=== PATIENT | male | born 1950 | race Caucasian/White ===

== ENCOUNTER 2023-07-15 08:20 | Outpatient (CLI) | payer MEDICARE, OTHER, SELFPAY ==
--- NOTE | ~2023-07-15 | US_ITS ---
EXAMINATION: US carotid duplex BI DATE: 07/15/2023 10:08 INDICATION: Cerebral infarction, unspecified. Thrombosed right vertebral artery. TECHNIQUE: Grayscale, color Doppler, and pulsed Doppler images of the cervical carotid arteries were obtained. The degree of vessel stenosis is placed in one of the following categories: normal, <50%, 5 0-69%, >=70% but less than near-occlusion, near-occlusion, or total occlusion. Note that percent sten osis relative to normal distal artery lumen diameter is indirectly measured from velocity measurement s as described by Beto, et al. Radiology 2003; 229:340-346. COMPARISON: CTA 07/14/2013 FINDINGS: RIGHT: The right common carotid artery (CCA) peak systolic velocity (PSV) is 66 cm/s. The right internal car otid artery (ICA) PSV is 131 cm/s. The right ICA end-diastolic velocity (EDV) is 26 cm/s. The right I CA/CCA PSV ratio is 2.0. Grayscale and color Doppler images yield an estimate of <50% diameter reduct ion from plaque in the ICA. There is antegrade flow in the right vertebral artery. LEFT: The left CCA PSV is 77 cm/s. The left ICA PSV is 73 cm/s. The left ICA EDV is 22 cm/s. The left ICA/C CA PSV ratio is 1.0. Grayscale and color Doppler images yield an estimate of <50% diameter reduction from plaque in the ICA. There is antegrade flow in the left vertebral artery. IMPRESSION: 1. <50% stenosis in the right internal carotid artery. 2. <50% stenosis in the left internal carotid artery. Reviewed, dictated and finalized at location A.
[2023-07-15 09:32] LABS: Cholesterol 238 mg/dL (0-200); HDL Direct 45 mg/dL; Triglycerides 111 mg/dL (<150)
[2023-07-15 09:42] LABS: LDL Cholesterol Direct 167 mg/dL
== END 2023-07-15 08:21 | disposition home or self-care (01) ==
LOC: ANHIMG 08:21
PROVIDERS: PCP Family Medicine; Visit Provider Psychiatry & Neurology Neurology
DX: I63.9 Cerebral infarction, unspecified (principal); I65.23 Occlusion and stenosis of bilateral carotid arteries
CPT/HCPCS: 36415; 80061; 93880

== ENCOUNTER 2023-08-05 16:15 | Emergency (ER) | payer MEDICARE, OTHER, SELFPAY ==
[2023-08-05 16:22] VITALS: BP 115/54; PULSE 72; RESP 18; TEMP 37; O2SAT 94
--- NOTE | 2023-08-05 16:41 | ECG_ITS ---
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 Measurements Intervals [place] Rate: 58 P: 11 NV: 190 QRS: 21 QRSD: 102 T: 13 QT: 394 QTc: 389 Interpretive Statements SINUS BRADYCARDIA BASELINE ARTIFACT- I, II, III, AVL, AVF BORDERLINE ECG No previous ECG available for comparison Electronically Signed On 08-05-2023 21:14:23 CDT by Crow Drew D.O.
--- NOTE | 2023-08-05 16:51 | ED.GENADULT ---
HPI - General Adult General Chief complaint: Unspecified Stated complaint: FEVER,N/V/D,LETHARGY X4D ?TICK BITE REACTION Time Seen by Provider: 08/05/23 16:18 Source: patient Mode of arrival: ambulatory Limitations: no limitations History of Present Illness HPI narrative: Patient knows he had a tick on his right leg 10 days ago. He does not know how long it was there but believes probably overnight. He removed it immediately with tweezers. on Wednesday of this week, started experiencing headache, nausea, and a fever a maximum temperature 100.4? F for which he took extra-strength Tylenol. He states the rash on his right lower leg persists (he realized the head was still present after the fact and had to dig it out). He also has a rash on his legs, chest/abdomen. He has experienced intermittent SOB but no chest pain. No mouth lesions, no new meds. He took a home covid test which was negative. Related Data Home Medications Medication Instructions Recorded Confirmed aspirin 81 mg tablet,delayed 81 mg PO DAILY 03/02/23 08/05/23 release cod liver oil 1 cap PO DAILY 08/04/23 08/05/23 Allergies Allergy/AdvReac Type Severity Reaction Status Date / Time Opioids - Morphine Analogues Allergy Severe Unknown Verified 08/05/23 16:29 [facility] Past Medical History Medical History (Updated 08/05/23 @ 18:55 by Rashmi Diaz MD) [place] (actinic keratosis) VIRGILIO on CPAP Osteoarthritis of right knee medial compartment Overweight Skin cancer screening Skin neoplasm Stroke 2013 Surgical History Surgical History History of repair of rotator cuff right Family History Family History Mother Cerebrovascular accident Cancer Social History Social History (Updated 08/04/23 @ 11:46 by Yolanda Hector CMA) Years smoked: 50 Smoking status: Former smoker Alcohol intake: current Alcohol use details: occasonal Substance use: never Substance use type: does not use Do You Feel Safe in your Home?: Yes Lack of Transportation: No Lack of Food: Never True Current Housing: I Have Housing Concerned About Future Housing: No Difficulty Paying Gas/Electric Bills: No Difficulty Paying for Meds: No Currently Unemployed: No Education: Trade/Vocational Certificate Difficulty w/ Childcare or Family Care: No Living arrangements: with family Occupation/Education: retired Exam Narrative: GENERAL: Well-appearing, well-nourished, and in no acute distress. HEAD: Normocephalic, atraumatic. EYES: Non injected, non icteric ENT: Nares clear, no rhinorrhea or epistaxis. No mucosal lesions. NECK: Supple. CHEST: Speaking in full sentences. No respiratory distress. HEART: Regular rate and rhythm. ABDOMEN: Soft, nondistended. EXTREMITIES: Normal range of motion. No edema. SKIN: Warm, dry. Erythematous rash with central blackened area, not erythema migrans in right lower extremity. Maculopapular rash on bilateral distal thighs, worse on the abdomen/chest, and even more significant on back. Palms/soles spared. NEURO: No focal deficits. Alert and oriented x3. PSYCH: Normal mood and affect. Course Vital Signs Vital signs: Vital Signs Temperature 98.6 F 08/05/23 16:22 Pulse Rate 72 08/05/23 16:22 Respiratory Rate 18 08/05/23 16:22 Blood Pressure 115/54 L 08/05/23 16:22 Pulse Oximetry 94 08/05/23 16:22 Oxygen Delivery Room Air 08/05/23 16:22 Temperature 98.6 F 08/05/23 16:22 Pulse Rate 72 08/05/23 16:22 Respiratory Rate 18 08/05/23 16:22 Blood Pressure 115/54 L 08/05/23 16:22 Pulse Oximetry 94 08/05/23 16:22 Oxygen Delivery Room Air 08/05/23 16:[address] [facility] Narrative Medical decision making narrative: Patient presents with headache and nausea, and fever. Patient had a tick bite 10 days ago and developed the symp
[2023-08-05 17:26] LABS: Basophils Percent Auto 0.2 % (0.2-1.2); Eosinophils Absolute Auto 0.9 K/mm3 (0-0.3); Eosinophils Percent Auto 7.2 % (0-4.4); Hematocrit 37.6 % (42.0-52.0); Hemoglobin 12.6 g/dL (14.0-18.0); Immature Granulocyte Absolute 0.03 K/mm3 (0.00-0.031); Immature Granulocyte Percent A 0.2 % (0-0.5); Lymphocytes Absolute Auto 0.81 K/mm3 (0.9-3.2); Lymphocytes Percent Auto 6.7 % (18.3-44.2); Mean Corpuscular HGB Conc 33.5 g/dl (32-36); Mean Corpuscular Hemoglobin 31.1 pg (26-34); Mean Corpuscular Volume 92.8 fl (80-100); Mean Platelet Volume 9.6 fl (7.4-10.4); Monocytes Absolute Auto 0.7 K/mm3 (0.1-0.6); Monocytes Percent Auto 5.7 % (2.6-8.5); Neutrophils Absolute Auto 9.7 K/mm3 (1.3-6.7); Platelet Count Result 197 k/mm3 (150-375); Red Blood Count 4.05 M/mm3 (4.6-6.20); Red Cell Distribution Width 13.2 % (11.5-14.5); White Blood Count 12.1 K/mm3 (4.5-10.0)
[2023-08-05 17:38] LABS: Alanine Aminotransferase 80 U/L (6-50); Albumin Level 4.3 g/dL (3.5-5.1); Alkaline Phosphatase 121 U/L (38-126); Anion Gap 8 mmol/L (4-12); Aspartate Amino Transferase 57 U/L (17-59); Bilirubin,Total 0.8 mg/dL (0.2-1.3); Blood Urea Nitrogen 48 mg/dL (9-20); Calcium 8.7 mg/dL (8.4-10.2); Carbon Dioxide 26 mmol/L (22-30); Chloride 102 mmol/L (98-107); Estimated CRCL calculation 42 ml/min; Estimated Glomerular Filt Rate 35; Glucose 104 mg/dL (65-110); Potassium 3.6 mmol/L (3.4-5.0); Sodium 136 mmol/L (137-145)
[2023-08-05 17:45] LABS: Influenza A QL RT-PCR Negative (Negative); Influenza B QL RT-PCR Negative (Negative); RSV RNA, RT-PCR Negative (Negative); SARS-CoV-2 RNA PCR Negative (Negative)
[2023-08-05 17:47] LABS: Platelet Estimate Adequate (Adequate); Schistocytes None Seen
[2023-08-05] MEDS: SODIUM CHLORIDE 0.9% IV 1,000 ML 999 ML IV CONT (17:56)
[2023-08-05] MEDS: DOXYCYCLINE HYCLATE 100 MG TABLET PO (18:47)
[2023-08-05 19:22] LABS: Anion Gap 9 mmol/L (4-12); Blood Urea Nitrogen 50 mg/dL (9-20); Calcium 8.5 mg/dL (8.4-10.2); Carbon Dioxide 24 mmol/L (22-30); Chloride 103 mmol/L (98-107); Estimated CRCL calculation 44 ml/min; Estimated Glomerular Filt Rate 37; Glucose 89 mg/dL (65-110); Magnesium 2.2 mg/dL (1.6-2.3); Potassium 3.5 mmol/L (3.4-5.0); Sodium 136 mmol/L (137-145)
[2023-08-05 19:45] LABS: Appearance Urine Cloudy (Clear); Bacteria Urine None Seen /hpf; Bilirubin Urine Negative (Negative); Blood Urine Negative (Negative); Color Urine Dark Yellow (Yellow); Glucose Urine UA Negative (Negative); Hyaline Casts Urine Present /lpf; Ketones Urine Trace mg/dL (Negative); Leukocyte Esterase Ur Negative LEU/UL (Negative); Need Manual Microscopic Reviewed; Nitrate Urine Negative (Negative); Non Pathogenic Casts >20; Protein Urine 2+ mg/dL (Negative); RBC Urine 0-2 /hpf (0-2); Squamous Epithelial Cell Urine Moderate /hpf (Few); Urobilinogen Urine 0.2 mg/dL (<2.0); WBC Urine 0-5 /hpf (0-3)
[2023-08-05 19:46] LABS: Add Urine Microscopic? YES
[2023-08-10 07:38] LABS: Rickettsia rickettsii DNA, PCR NOT DETECTED
[2023-09-02 14:05] LABS: Reference Lab Test Result Not Detected
== END 2023-08-05 19:42 | disposition home or self-care (01) ==
PROVIDERS: Emergency Provider Student in an Organized Health Care Education/Training Program; PCP Family Medicine
DX: S80.861A Insect bite (nonvenomous), right lower leg, initial encounter (principal); N17.9 Acute kidney failure, unspecified; D64.9 Anemia, unspecified; D72.829 Elevated white blood cell count, unspecified; R74.01 Elevation of levels of liver transaminase levels; Z20.822 Contact with and (suspected) exposure to COVID-19; R00.1 Bradycardia, unspecified; W57.XXXA Bitten or stung by nonvenomous insect and other nonvenomous arthropods, initial encounter
CPT/HCPCS: 36415; 80048; 80053; 81001; 83735; 85025; 86666; 87484; 87637; 87798; 87801; 93005; 99283; A9270; J7030

== ENCOUNTER 2023-08-07 22:05 | Inpatient (IN) | payer MEDICARE, OTHER, SELFPAY ==
--- NOTE | ~2023-08-07 | XR_ITS ---
EXAMINATION: XR chest 1V portable 08/07/2023 22:55 INDICATION: Shortness of breath PROCEDURE: AP portable chest COMPARISON: 07/13/2013 FINDINGS: The lungs are clear. The cardiomediastinal silhouette is within normal limits. There are no pleural effusions. There is no pneumothorax suspected. IMPRESSION: 1: NO ACUTE CARDIOPULMONARY DISEASE. Reviewed, dictated and finalized at location B.
[2023-08-07 22:08] VITALS: BP 90/65; PULSE 149; RESP 26; TEMP 37.2; O2SAT 96
--- NOTE | 2023-08-07 22:12 | ECG_ITS ---
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 Measurements Intervals [place] Rate: 144 P: 0 DC: 0 QRS: 5 QRSD: 101 T: -14 QT: 278 QTc: 431 Interpretive Statements ATRIAL FIBRILLATION WITH RAPID VENTRICULAR RESPONSE ABNORMAL RHYTHM ECG Compared to ECG 08/05/2023 17:02:38 Atrial fibrillation with RVR now present Electronically Signed On 08-08-2023 12:07:53 CDT by Felix Penaloza M.D.
[2023-08-07 22:16] VITALS: PULSE 137
[2023-08-07 22:17] VITALS: O2SAT 96
[2023-08-07 22:21] VITALS: BP 115/61; PULSE 138; RESP 18; O2SAT 97
[2023-08-07 22:24] LABS: Basophils Absolute Auto 0.1 K/mm3 (0.0-0.1); Basophils Percent Auto 0.4 % (0.2-1.2); Eosinophils Absolute Auto 1.3 K/mm3 (0-0.3); Eosinophils Percent Auto 7.2 % (0-4.4); Hematocrit 37.9 % (42.0-52.0); Immature Granulocyte Absolute 0.13 K/mm3 (0.00-0.031); Immature Granulocyte Percent A 0.7 % (0-0.5); Lymphocytes Percent Auto 9.6 % (18.3-44.2); Mean Corpuscular HGB Conc 34.3 g/dl (32-36); Mean Corpuscular Hemoglobin 31.3 pg (26-34); Mean Corpuscular Volume 91.3 fl (80-100); Mean Platelet Volume 9.5 fl (7.4-10.4); Monocytes Absolute Auto 0.7 K/mm3 (0.1-0.6); Monocytes Percent Auto 3.8 % (2.6-8.5); Neutrophils Absolute Auto 13.9 K/mm3 (1.3-6.7); Neutrophils Percent Auto 78.3 % (45.5-73.1); Platelet Count Result 272 k/mm3 (150-375); Red Blood Count 4.15 M/mm3 (4.6-6.20); Red Cell Distribution Width 13.2 % (11.5-14.5); White Blood Count 17.7 K/mm3 (4.5-10.0)
[2023-08-07 22:33] LABS: Alanine Aminotransferase 56 U/L (6-50); Alkaline Phosphatase 142 U/L (38-126); Anion Gap 14 mmol/L (4-12); Aspartate Amino Transferase 33 U/L (17-59); Bilirubin,Total 0.9 mg/dL (0.2-1.3); Blood Urea Nitrogen 50 mg/dL (9-20); Calcium 9.1 mg/dL (8.4-10.2); Carbon Dioxide 20 mmol/L (22-30); Chloride 102 mmol/L (98-107); Estimated CRCL calculation 32 ml/min; Estimated Glomerular Filt Rate 26; Glucose 87 mg/dL (65-110); Potassium 3.3 mmol/L (3.4-5.0); Sodium 136 mmol/L (137-145)
[2023-08-07 22:45] VITALS: BP 119/63; PULSE 70; RESP 14; O2SAT 96
[2023-08-07] MEDS: SODIUM CHLORIDE 0.9% IV 1,000 ML 999 ML IV CONT (22:54)
[2023-08-07 23:03] LABS: Magnesium 1.9 mg/dL (1.6-2.3)
[2023-08-07 23:14] LABS: Lactic Acid Reflex 1.4 mmol/L (0.7-2.0)
[2023-08-07 23:21] LABS: NT Pro B Type Natriuretic Pept 2120 pg/mL (19.9-100); Procalcitonin 1.8 ng/mL; Troponin I 0.205 ng/mL (0.000-0.034)
[2023-08-08] VITALS (21 sets, daily range): BP systolic 106–145; BP diastolic 47–72; PULSE 58–105; RESP 16–22; TEMP 36.4–37.6; O2SAT 96–99; BMI 34.6
--- NOTE | 2023-08-08 00:08 | ED.GENADULT ---
HPI - General Adult General Chief complaint: Shortness of Breath/Dyspnea Stated complaint: shortness of breath with lyme disease Time Seen by Provider: 08/07/23 22:34 History of Present Illness HPI narrative: patient has severe old gentleman who presents emergency department with chief complaint of shortness of breath. Patient reports that he had a tick bite on the 15th was seen in the emergency department after he started develop a rash and was started on doxycycline new laboratory studies had decent at that time the patient reports that the rash has been progressively worsening and reports that now he is covered his entire body the patient reports that he has been having problems with shortness of breath and reports that he has noticed that at times his heart rate has been fast particularly whenever he ambulates or does any kind of activity. The patient reports no prior history of cardiac or respiratory disease the patient reports that he has generalized malaise and body aches Related Data Home Medications Medication Instructions Recorded Confirmed aspirin 81 mg tablet,delayed 81 mg PO DAILY 03/02/23 08/05/23 release cod liver oil 1 cap PO DAILY 08/04/23 08/05/23 Allergies Allergy/AdvReac Type Severity Reaction Status Date / Time Opioids - Morphine Analogues Allergy Severe Unknown Verified 08/05/23 16:29 Review of Systems Review of Systems: A 10 system review of systems was completed on the patient and is negative except for what is stated in the HPI. Nursing and ancillary documentation was reviewed. [facility] Past Medical History Medical History [place] (actinic keratosis) VIRGILIO on CPAP Osteoarthritis of right knee medial compartment Overweight Skin cancer screening Skin neoplasm Stroke 2013 Surgical History Surgical History History of repair of rotator cuff right Family History Family History Mother Cerebrovascular accident Cancer Social History Social History Years smoked: 50 Smoking status: Former smoker Alcohol intake: current Alcohol use details: occasonal Substance use: never Substance use type: does not use Do You Feel Safe in your Home?: Yes Lack of Transportation: No Lack of Food: Never True Current Housing: I Have Housing Concerned About Future Housing: No Difficulty Paying Gas/Electric Bills: No Difficulty Paying for Meds: No Currently Unemployed: No Education: Trade/Vocational Certificate Difficulty w/ Childcare or Family Care: No Living arrangements: with family Occupation/Education: retired Exam Narrative: GENERAL: Well-appearing, well-nourished, and in no acute distress. HEAD: Normocephalic, atraumatic. EYES: PERRLA and EOMI. ENT: Nares clear, no rhinorrhea or epistaxis. Mucous membranes moist. NECK: Supple. CHEST: Clear to auscultation. No respiratory distress. HEART: tachycardic rate and rhythm. No murmur heard. Normal peripheral pulses. ABDOMEN: Soft, nontender, nondistended, normal active bowel sounds. EXTREMITIES: Normal range of motion. No edema. SKIN: Warm, dry, diffuse rash present. NEURO: No focal deficits. Alert and oriented x3. PSYCH: Normal mood and affect. Course Vital Signs Vital signs: Vital Signs Temperature 37.2 C 08/07/23 22:08 Pulse Rate 149 H 08/07/23 22:08 Respiratory Rate 26 H 08/07/23 22:08 Blood Pressure 90/65 L 08/07/23 22:08 Pulse Oximetry 96 08/07/23 22:08 Oxygen Delivery Room Air 08/07/23 22:08 Temperature 37.2 C 08/07/23 22:08 Pulse Rate 70 08/07/23 22:45 Respiratory Rate 14 08/07/23 22:45 Blood Pressure 119/63 08/07/23 22:45 Pulse Oximetry 96 08/07/23 22:45 Oxygen Delivery Room Air 08/07/23 22:17
[2023-08-08 00:15] LABS: INR 1.2; Prothrombin Time 15.8 Seconds (11.1-14.7)
--- NOTE | 2023-08-08 00:34 | PM.IMHP ---
H&P: HPI History of Present Illness Date/Time: 08/08/23 00:34 Chief Complaint: tick bite Narrative: patient is 72-year-old male history of sleep apnea and actinic keratosis came to the emergency room with a tick bite and rash on the patient was treated with doxycycline and sent home but patient was re-evaluated in the emergency room tonight with worsening rash shortness of breath difficulty breathing and patient was noted to be hypotensive. Patient denied chest pain no nausea no vomiting no headaches dizziness palpitation. Review of Systems Review of Systems: All systems reviewed & are unremarkable except as noted in HPI and below PMFSH Past Medical History Medical History AK (actinic keratosis) VIRGILIO on CPAP Osteoarthritis of right knee medial compartment Overweight Skin cancer screening Skin neoplasm Stroke 2013 Surgical History Surgical History History of repair of rotator cuff right Family History Family History Mother Cancer Cerebrovascular accident Lung cancer C. difficile colitis Father Hypertension Pacemaker Social History Social History Years smoked: 20 Smoking status: Former smoker Tobacco type: cigars Second hand tobacco smoke exposure: No Alcohol intake: current Drinks per week: 5 Alcohol use details: occasonal Substance use: never Substance use type: does not use Do You Feel Safe in your Home?: Yes Lack of Transportation: No Lack of Food: Never True Current Housing: I Have Housing Concerned About Future Housing: No Difficulty Paying Gas/Electric Bills: No Difficulty Paying for Meds: No Currently Unemployed: No Education: Trade/Vocational Certificate Difficulty w/ Childcare or Family Care: No Living arrangements: with family Occupation/Education: retired Spiritual care concerns: No Meds Home Medications and Allergies Home Medications Medication Instructions Recorded Confirmed Type aspirin 81 mg tablet,delayed 81 mg PO DAILY 03/02/23 08/08/23 History release diclofenac sodium 75 mg 75 mg PO BID #180 tabs 06/01/23 08/08/23 Rx tablet,delayed release escitalopram oxalate 10 mg tablet 10 mg PO DAILY #90 tabs 06/17/23 08/08/23 Rx cod liver oil 2 cap PO DAILY 08/04/23 08/08/23 History doxycycline hyclate 100 mg capsule 100 mg PO Q12H 14 days #28 caps 08/05/23 08/08/23 Rx ondansetron 4 mg disintegrating 4 mg PO Q8H PRN nausea and 08/05/23 08/08/23 Rx tablet vomiting #7 tabs acetaminophen 500 mg tablet 500 mg PO Q6H PRN .arthritic pain 08/08/23 08/08/23 History (Acetaminophen Extra Strength) lisinopril 40 mg tablet 40 mg PO DAILY 08/08/23 08/08/23 History Allergies Allergy/AdvReac Type Severity Reaction Status Date / Time Opioids - Morphine Analogues Allergy Severe Unknown Verified 08/08/23 02:31 Vital Signs Vital Signs - 24 hr 08/07/23 22:08 08/07/23 22:16 08/07/23 22:17 Temperature 37.2 C Pulse Rate 149 H 137 H Respiratory Rate 26 H Blood Pressure 90/65 L Pulse Oximetry 96 96 Oxygen Delivery Room Air Room Air 08/07/23 22:21 08/07/23 22:45 Temperature Pulse Rate 138 H 70 Respiratory Rate 18 14 Blood Pressure 115/61 119/63 Pulse Oximetry 97 96 Oxygen Delivery Exam Narrative: GENERAL: Well appearing, no acute distress. HEAD: Normocephalic, atraumatic. NECK: Supple. No adenopathy, no masses. RESPIRATORY: respirations nonlabored. , no rales, wheezing. CARDIOVASCULAR: Regular rate and rhythm without murmurs, . Peripheral pulses 2+ and equal bilaterally. ABDOMINAL: Soft, nontender, nondistended, no hepatosplenomegaly. Normoactive BS. MUSCULOSKELETAL: no Epigastric and no hypochondrial tenderness SKIN: warm and dry with a diffuse
[2023-08-08] MEDS: DOXYCYCLINE 100 MG/NS 100 ML 100 MG/100 ML BAG IVPB ×2 (01:06→12:17)
--- NOTE | 2023-08-08 02:01 | ADMGEN ---
This patient, Lyndon Salgado, was admitted to IMU Room 205-02 on 08/08/23 at 0200. Patient/family oriented to hospital policies and general routines including ID bracelet, bed and alarms, visiting hours, pain management, procedures, bathroom and other care routines, personal items, smoking policy, room service/diet, and visiting hours. Information on how to activate the Rapid Response Team has been discussed. Patient/Family are encouraged to report perceived risks to care and to ask questions if they do not understand what they are told or what they should do.
[2023-08-08 02:09] LABS: Troponin I 0.168 ng/mL (0.000-0.034)
[2023-08-08] MEDS: SODIUM CHLORIDE 0.9% IV 1,000 ML 75 ML IV CONT ×2 (02:57→15:03)
[2023-08-08 05:04] LABS: Troponin I 0.128 ng/mL (0.000-0.034)
[2023-08-08 05:14] LABS: Erythrocyte Sedimentation Rate 71 mm/hr (0-20)
[2023-08-08] MEDS: methylPREDNISolone SOD SUCC 125 MG VIAL IV PUSH (05:24)
[2023-08-08] MEDS: cefTRIAXone 2 GM/NS 100 ML 2 GM/100 ML BAG IVPB ×2 (05:25→17:10)
[2023-08-08 08:22] LABS: Appearance Urine Cloudy (Clear); Bacteria Urine None Seen /hpf; Bilirubin Urine Negative (Negative); Blood Urine Negative (Negative); Color Urine Dark Yellow (Yellow); Glucose Urine UA Negative (Negative); Granular Casts Urine Present /lpf; Ketones Urine Trace mg/dL (Negative); Leukocyte Esterase Ur Trace LEU/UL (Negative); Nitrate Urine Negative (Negative); Non Pathogenic Casts >20; Protein Urine 2+ mg/dL (Negative); RBC Urine 0-2 /hpf (0-2); Specific Grav Ur 1.017 (1.001-1.035); Squamous Epithelial Cell Urine Moderate /hpf (Few); WBC Urine 0-5 /hpf (0-3)
[2023-08-08 08:24] LABS: Add Urine Microscopic? YES
--- NOTE | 2023-08-08 08:43 | PM.IMPN ---
Progress Note: A&P Assessment and Plan (1) Obstructive sleep apnea syndrome: Code(s): G47.33 - Obstructive sleep apnea (adult) (pediatric) Status: Acute (2) Tick bite: Code(s): W57.XXXA - Bitten or stung by nonvenomous insect and other nonvenomous arthropods, initial encounter Status: Acute (3) Sepsis associated hypotension: Code(s): A41.9 - Sepsis, unspecified organism; I95.9 - Hypotension, unspecified Status: Acute Plan patient is 72-year-old male history of sleep apnea and actinic keratosis came to the emergency room with a tick bite and rash on the patient was treated with doxycycline and sent home but patient was re-evaluated in the emergency room tonight with worsening rash shortness of breath difficulty breathing and patient was noted to be hypotensive.? Patient denied chest pain no nausea no vomiting no headaches dizziness palpitation. sepsis/hypotension /tachycardia etiology of the rash unknown differential diagnosis drug-induced rash/ measles/meningococcal /tick bite / viral IV fluid resuscitation Monitor lactic acid levels Repeat CBC CMP Two sets of Blood cultures urine cultures Monitor albumin' Monitoring of mental status. IV antibiotics doxycycline. Rocephin 2 g q.12 Solu-Medrol 125 x 1 WBC 17 K 4/: . patient is afebrile, blood pressure stable, leukocytosis improving, patient feels itchy, continue doxycycline and ceftriaxone IV, start Benadryl 25 mg q.6 hours IV, famotidine 20 mg acute are IV CRF stage IIIB cause dehydration /inflammation /hypotension serum creatinine 2.5 Avoid nephrotoxic drugs. Monitor antihypertensive drug therapy. Avoid NSAIDs. Routine CMP monitoring GFR. Monitor electrolytes especially potassium. 3.3 Pharmacy does medications. positive troponin. unclear etiology., demand ischemia Due to sepsis, AFib RVR or viral myocarditis [id number] echo. BNP 2100 consult business management professor AFib RVR new onset AFib On business management professor Likely secondary to sepsis, myocarditis? Consult business management professor, appreciate recommendations Start metoprolol p.o. per business management professor now patient has sinus rhythm OBESITY Monitor physical inactivity. Stress monitoring and eating disorder. Referral to weight loss clinic. as outpatient history of sleep apnea Diet and exercise counseling done Subjective Date/time seen: 08/08/23 08:43 Interval history: I saw And examined patient today. patient feels better today, still few itchy, patient is afebrile, blood pressure stable, patient denies palpitation, chest pain. Dyspnea is improving. Patient denies abdomen pain, nausea vomiting diarrhea dysuria Exam Narrative: GENERAL: Pleasant, in no acute distress. Well-nourished. - EYES: EOMI. Anicteric. - HENT: Moist mucous membranes. - LUNGS: Clear to auscultation bilaterally, no wheezing, rhonchi, or rales. - CARDIOVASCULAR: Regular rate and rhythm. No murmur. No JVD. - ABDOMEN: Soft, non-tender and non-distended. No palpable masses. - EXTREMITIES: No edema. Peripheral pulses 2+. Non-tender. - NEUROLOGIC: No focal neurological deficits. CN II-XII grossly intact. - PSYCHIATRIC: Awake, Alert and oriented x 3. Appropriate mood and affect. - SKIN: scattered papular rash over trunk lower extremities upper extremities - LYMPH: No cervical lymphadenopathy. Objective Data Vital Signs Vital Signs: Vital Signs - 24 hr 08/07/23 22:08 08/07/23 22:16 08/07/23 22:17 Temperature 98.9 F Pulse Rate 149 H 137 H Respiratory Rate 26 H Blood Pressure 90/65 L Pulse Oximetry 96 96 Oxygen Delivery Room Air Room Air 08/07/23 22:21 08/07/23 22:45 08/08/23 01:25 Temperature Pulse Rate 138 H 70 63 Respiratory Rate 18 14 18 Blood Pressure 115/61 119/63 109/47 L Pulse Oximetry 97 96 98 Oxygen Delivery 08/08/23 01:31 08/08/23 01:33 08/08/23 02:00 Temperature 97.5 F L Pulse Rate 63 62 58 L Respiratory Rat
[2023-08-08] MEDS: ASPIRIN 81 MG CHEWABLE TABLET PO (08:44)
[2023-08-08] MEDS: ENOXAPARIN 40 MG/0.4 ML SYRINGE SUB-Q (08:44)
[2023-08-08 09:00] LABS: Basophils Absolute Auto 0.1 K/mm3 (0.0-0.1); Basophils Percent Auto 0.4 % (0.2-1.2); Eosinophils Absolute Auto 1.4 K/mm3 (0-0.3); Eosinophils Percent Auto 10.4 % (0-4.4); Hematocrit 37.1 % (42.0-52.0); Immature Granulocyte Absolute 0.08 K/mm3 (0.00-0.031); Immature Granulocyte Percent A 0.6 % (0-0.5); Lymphocytes Absolute Auto 1.88 K/mm3 (0.9-3.2); Mean Corpuscular HGB Conc 32.3 g/dl (32-36); Mean Corpuscular Hemoglobin 30.8 pg (26-34); Mean Corpuscular Volume 95.4 fl (80-100); Mean Platelet Volume 10.4 fl (7.4-10.4); Monocytes Absolute Auto 0.2 K/mm3 (0.1-0.6); Monocytes Percent Auto 1.3 % (2.6-8.5); Neutrophils Absolute Auto 9.8 K/mm3 (1.3-6.7); Neutrophils Percent Auto 73.3 % (45.5-73.1); Platelet Count Result 262 k/mm3 (150-375); Red Blood Count 3.89 M/mm3 (4.6-6.20); Red Cell Distribution Width 13.7 % (11.5-14.5); White Blood Count 13.4 K/mm3 (4.5-10.0)
[2023-08-08 09:25] LABS: Alanine Aminotransferase 46 U/L (6-50); Albumin Level 3.5 g/dL (3.5-5.1); Alkaline Phosphatase 110 U/L (38-126); Anion Gap 10 mmol/L (4-12); Aspartate Amino Transferase 28 U/L (17-59); Bilirubin,Total 0.7 mg/dL (0.2-1.3); Blood Urea Nitrogen 53 mg/dL (9-20); Calcium 8.3 mg/dL (8.4-10.2); Carbon Dioxide 21 mmol/L (22-30); Chloride 104 mmol/L (98-107); Estimated CRCL calculation 30 ml/min; Estimated Glomerular Filt Rate 23; Glucose 86 mg/dL (65-110); Potassium 3.2 mmol/L (3.4-5.0); Sodium 135 mmol/L (137-145)
--- NOTE | 2023-08-08 10:58 | PM.CNCAR ---
Assessment and Plan Assessment and plan (1) Atrial fibrillation with RVR: Code(s): I48.91 - Unspecified atrial fibrillation Status: Acute Assessment and Plan: New diagnosis of atrial fibrillation for the patient. Will check TSH level, echocardiogram. Likely triggered by underlying acute illness with febrile illness, rash, sepsis As patient currently in sinus rhythm, will start Toprol 25mg once daily. [id number] is 4 for age, hypertension, history of CVA. Recommend anticoagulation for stroke risk reduction. Discussed the indication for anticoagulation with the patient, risks vs benefits. Patient agreeable. Will start Eliquis 5mg BID. (2) Elevated troponin: Code(s): R79.89 - Other specified abnormal findings of blood chemistry Status: Acute Assessment and Plan: Mildly elevated. This does not appear to be an acute coronary syndrome. Likely demand ischemia from sepsis, acute febrile illness, ROGE, atrial fibrillation with RVR. Myocarditis on differential as well. Echocardiogram ordered and pending. (3) Acute kidney injury: Code(s): N17.9 - Acute kidney failure, unspecified Status: Acute Assessment and Plan: Agree with IVFs. If ROGE continues to worsen, consider Nephrology consultation. (4) Sepsis associated hypotension: Code(s): A41.9 - Sepsis, unspecified organism; I95.9 - Hypotension, unspecified Status: Acute Assessment and Plan: Management as per primary team. On antibiotics. (5) Acute febrile illness: Code(s): R50.9 - Fever, unspecified Status: Acute Assessment and Plan: Has diffuse rash across his body after getting tick bite. On antibiotics as per primary team. If this continues to worsen, consider Infectious Disease consultation, which would necessitate transfer to another institution that has ID services. (6) Thrombotic stroke involving cerebellar artery: Code(s): I63.349 - Cerebral infarction due to thrombosis of unspecified cerebellar artery Status: Acute Assessment and Plan: History of CVA in 2014. As we are starting NOAC for atrial fibrillation, will stop his ASA. Not on statin at home, will start high-intensity statin. (7) Tick bite: Code(s): W57.XXXA - Bitten or stung by nonvenomous insect and other nonvenomous arthropods, initial encounter Status: Acute Assessment and Plan: Has diffuse rash across his body after getting tick bite. On antibiotics as per primary team. If this continues to worsen, consider Infectious Disease consultation, which would necessitate transfer to another institution that has ID services. Plan Recommendations and plan were discussed with Hospitalist. History of Present Illness History of Present Illness Consult date/time: 08/08/23 10:58 Requesting physician: Marleni Lin MD Consult reason: Other (Elevated troponin, AFIB) Reason For Visit: Febrile illness, acute kidney injury, elevated tro Narrative: We are consulted for elevated troponin, atrial fibrillation. This is a 72 year old male with hypertension, history of CVA in 2013 who had a tick bite on July 20 on his right leg and then developed a rash at that site. However, the rash has been progressively worsening and spreading across his body and covering his entire body. Has been having high grade fevers at home. Has felt a fast heart rate yesterday, but not prior to that. No prior cardiac issues. ER suspects he may be having [place] spotted fever. He has been admitted for further management. Workup thus far shows: WBC 17.7 ESR elevated at 71 ROGE with SCr of 2.7 Lactate is normal. Troponins of 0.205, 0.168, 0.128 CRP elevated at 31 CXR is clear Blood cultures are pending EKG on 08/04 shows sinus rhythm, however EKG on 08/07 shows atrial fibrillation with RVR Tele shows that patient is currently in sinus rhythm Review of Systems Review of Systems: All systems reviewed & are unremar
[2023-08-08 11:35] LABS: Thyroid Stimulating Hormone 0.627 uIU/mL (0.465-4.680)
[2023-08-08] MEDS: METOPROLOL SUCCINATE EXT REL 25 MG TABCR PO (12:17)
[2023-08-08] MEDS: diphenhydrAMINE HCl INJ 50 MG/ML VIAL 25 MG IV PUSH ×3 (15:04→23:32)
[2023-08-08] MEDS: FAMOTIDINE 20 MG/2 ML VIAL IV PUSH ×2 (15:04→21:07)
[2023-08-08] MEDS: APIXABAN 5 MG TABLET PO (20:39)
[2023-08-09] VITALS (11 sets, daily range): BP systolic 143–146; BP diastolic 63–85; PULSE 54–118; RESP 16–18; TEMP 36.6–36.9; O2SAT 96–100
[2023-08-09] MEDS: DOXYCYCLINE 100 MG/NS 100 ML 100 MG/100 ML BAG IVPB ×2 (01:00→12:39)
--- NOTE | 2023-08-09 03:55 | PC.NURSE ---
[facility] faxed, downtime Mar faxed and tubed, Verbal report given to Bayron LOZADA on medical.
[2023-08-09 04:31] LABS: Basophils Absolute Auto 0.1 K/mm3 (0.0-0.1); Basophils Percent Auto 0.4 % (0.2-1.2); Eosinophils Absolute Auto 0.1 K/mm3 (0-0.3); Eosinophils Percent Auto 0.4 % (0-4.4); Hematocrit 32.4 % (42.0-52.0); Hemoglobin 10.7 g/dL (14.0-18.0); Immature Granulocyte Absolute 0.13 K/mm3 (0.00-0.031); Immature Granulocyte Percent A 0.7 % (0-0.5); Lymphocytes Absolute Auto 2.16 K/mm3 (0.9-3.2); Mean Corpuscular Volume 93.9 fl (80-100); Mean Platelet Volume 9.9 fl (7.4-10.4); Monocytes Absolute Auto 0.8 K/mm3 (0.1-0.6); Monocytes Percent Auto 4.3 % (2.6-8.5); Neutrophils Absolute Auto 14.7 K/mm3 (1.3-6.7); Neutrophils Percent Auto 82.2 % (45.5-73.1); Platelet Count Result 274 k/mm3 (150-375); Red Blood Count 3.45 M/mm3 (4.6-6.20); Red Cell Distribution Width 13.5 % (11.5-14.5)
--- NOTE | 2023-08-09 04:42 | PC.NURSE ---
Transferred to [facility] with all his belongs at [id number]
[2023-08-09 05:04] LABS: Anisocytosis 1+; Large Platelets Present; Platelet Estimate Adequate (Adequate)
[2023-08-09 05:05] LABS: Atypical Lymphocytes Present; Burr Cells 1+; Schistocytes None Seen
[2023-08-09 05:22] LABS: Anion Gap 8 mmol/L (4-12); Blood Urea Nitrogen 40 mg/dL (9-20); Calcium 8.5 mg/dL (8.4-10.2); Carbon Dioxide 21 mmol/L (22-30); Chloride 109 mmol/L (98-107); Estimated CRCL calculation 56 ml/min; Estimated Glomerular Filt Rate 50; Glucose 124 mg/dL (65-110); Potassium 3.8 mmol/L (3.4-5.0); Sodium 138 mmol/L (137-145)
[2023-08-09] MEDS: cefTRIAXone 2 GM/NS 100 ML 2 GM/100 ML BAG IVPB ×2 (05:45→17:29)
--- NOTE | 2023-08-09 06:00 | ECHO_ITS ---
Patient Info Name: Lyndon Salgado Age: 72 years : 1950 Gender: Male Ht: 71 in Wt: 248 lbs BSA: 2.41 m2 HR: 54 bpm BP: 143 / 63 mmHg Heart Rhythm: Sinus Rhythm Technical Quality: Fair Exam Date: 08/09/2023 9:17 AM Exam Location: Echo Lab Patient Status: Inpatient Admit Date: 08/09/2023 Staff Ordering Physician: Sarbjit Manuel MD Power Shovel Operator Helper: Madeleine York RDCS Attending Provider: Nithin Laboy MD Referring Physician: Mar LUNA; Exam Type: CA echo dop color flow w con Study Info Indications - febrile illness, elevated troponin Complete two-dimensional, color flow and Doppler transthoracic echocardiogram is performed with contrast to opacify the left ventricle and to improve the deliniation of the left ventricle endocardial borders. Contrast/Agitated Saline Contrast/Ag. Saline: Definity Amount: 2.00 ml Administered By: Madeleine York RDCS Existing IV Access: Yes IV Access Condition: patent with no signs of infiltration Summary 1. Definity contrast used to improve visualization. 2. Normal left ventricular size and systolic function without wall motion abnormalities and normal ejection fraction. 3. Mildly sclerotic aortic valve with will maintain leaflet excursion. 4. Trivial TR. Left Ventricle Left ventricular chamber dimension is normal. Left ventricular systolic function is normal, estimated at 60-65%. The left ventricular diastolic function is grade I diastolic dysfunction. Right Ventricle Right ventricular chamber dimension is normal. Left Atria Left atrial chamber dimension is normal. Right Atria Right atrial chamber dimension is normal. Aortic Valve The aortic valve is trileaflet. There is mild aortic valve sclerosis. Pulmonic Valve The pulmonic valve is not well visualized. Mitral Valve The mitral valve has normal leaflets. Tricuspid Valve The tricuspid valve leaflets are normal. There is trace tricuspid valve regurgitation. Pericardium/Pleural The pericardium appears normal. Aorta The aortic root size at the sinus of Valsalva is normal. Left Ventricular Outflow Tract Name Value Normal LVOT 2D LVOT Diameter 2.04 cm LVOT Doppler LVOT Peak Gradient 6 mmHg LVOT Mean Gradient 3 mmHg LVOT VTI 29.43 cm LVOT VTI/AV VTI Ratio 0.95 LVOT Stroke Volume 96.44 ml LVOT CO 5.41 l/min LVOT CI 2.24 L/min/m2 Pulmonic Valve Name Value Normal RVOT Doppler RVOT Peak Gradient 2 mmHg PV Doppler PV Peak Gradient 5 mmHg Mitral Valve Name
[2023-08-09] MEDS: diphenhydrAMINE HCl INJ 50 MG/ML VIAL 25 MG IV PUSH ×2 (06:19→12:32)
--- NOTE | 2023-08-09 08:50 | PM.IMPN ---
Progress Note: A&P Assessment and Plan (1) Obstructive sleep apnea syndrome: Code(s): G47.33 - Obstructive sleep apnea (adult) (pediatric) Status: Acute (2) Tick bite: Code(s): W57.XXXA - Bitten or stung by nonvenomous insect and other nonvenomous arthropods, initial encounter Status: Acute (3) Sepsis associated hypotension: Code(s): A41.9 - Sepsis, unspecified organism; I95.9 - Hypotension, unspecified Status: Acute Plan patient is 72-year-old male history of sleep apnea and actinic keratosis came to the emergency room with a tick bite and rash on the patient was treated with doxycycline and sent home but patient was re-evaluated in the emergency room tonight with worsening rash shortness of breath difficulty breathing and patient was noted to be hypotensive.? Patient denied chest pain no nausea no vomiting no headaches dizziness palpitation. sepsis/hypotension /tachycardia etiology of the rash unknown differential diagnosis drug-induced rash/ measles/meningococcal /tick bite / viral IV fluid resuscitation Monitor lactic acid levels Repeat CBC CMP Two sets of Blood cultures urine cultures Monitor albumin' Monitoring of mental status. IV antibiotics doxycycline. Rocephin 2 g q.12 Solu-Medrol 125 x 1 upon arrival patient is afebrile, blood pressure stable, leukocytosis is worse patient feels itchy, continue doxycycline and ceftriaxone IV, increase Benadryl 50 mg q.6 hours IV, c/w famotidine 20 mg acute are IV eosinophilia has resolved acute renal failure cause dehydration /inflammation /hypotension serum creatinine 2.5 Avoid nephrotoxic drugs. Monitor antihypertensive drug therapy. Avoid NSAIDs. Routine CMP monitoring GFR. Monitor electrolytes especially potassium. 3.3 Pharmacy does medications. creatinine trending down 1.4 today positive troponin. unclear etiology., demand ischemia Due to sepsis, AFib RVR or viral myocarditis [id number] echo. BNP 2100 consult car bracer AFib RVR new onset AFib On car bracer Likely secondary to sepsis, myocarditis? Consult car bracer, appreciate recommendations Start metoprolol p.o. per car bracer now patient has sinus rhythm OBESITY Monitor physical inactivity. Stress monitoring and eating disorder. Referral to weight loss clinic. as outpatient history of sleep apnea Diet and exercise counseling done Subjective Date/time seen: 08/09/23 08:50 Interval history: I saw And examined patient today. patient feels better today, rashes are subsiding, still few itchy, patient is afebrile, blood pressure stable, patient denies palpitation, chest pain. Dyspnea is improving. Patient denies abdomen pain, nausea vomiting diarrhea dysuria, blood culture negative. Labs reviewed, leukocytosis is worse, blood eosinophilia resolved, kidney function continue to improve Exam Narrative: GENERAL: Pleasant, in no acute distress. Well-nourished. - EYES: EOMI. Anicteric. - HENT: Moist mucous membranes. - LUNGS: Clear to auscultation bilaterally, no wheezing, rhonchi, or rales. - CARDIOVASCULAR: Regular rate and rhythm. No murmur. No JVD. - ABDOMEN: Soft, non-tender and non-distended. No palpable masses. - EXTREMITIES: No edema. Peripheral pulses 2+. Non-tender. - NEUROLOGIC: No focal neurological deficits. CN II-XII grossly intact. - PSYCHIATRIC: Awake, Alert and oriented x 3. Appropriate mood and affect. - SKIN: scattered papular rash over trunk lower extremities upper extremities - LYMPH: No cervical lymphadenopathy. Objective Data Vital Signs Vital Signs: Vital Signs - 24 hr 08/08/23 10:00 08/08/23 11:57 08/08/23 12:17 Temperature 98.0 F Pulse Rate 105 H 62 84 Respiratory Rate 16 Blood Pressure 145/67 H Pulse Oximetry 98 Oxygen Delivery 08/08/23 12:00 08/08/23 12:00 08/08/23 14:00 Temperature Pulse Rate 66 62 Respiratory Rate Blood
[2023-08-09] MEDS: APIXABAN 5 MG TABLET PO ×2 (09:12→20:52)
[2023-08-09] MEDS: ATORVASTATIN 40 MG TABLET 80 MG PO (09:12)
[2023-08-09] MEDS: METOPROLOL SUCCINATE EXT REL 25 MG TABCR PO (09:12)
[2023-08-09] MEDS: FAMOTIDINE 20 MG/2 ML VIAL IV PUSH ×2 (09:12→20:52)
[2023-08-09] MEDS: PERFLUTREN LIPID MICROSPHERES 1.5 ML VIAL DILUTED TO 10 ML TOTAL VOLUME IV PUSH (10:00)
--- NOTE | 2023-08-09 11:32 | IVDEFINITY ---
Prior to administration of IV Definity the patient was educated on the risks and benefits of the imaging enhancing agent including potential adverse side effects. The patient verbalized understanding. Allergies were verified. No exclusion criteria were identified and at least one of the following inclusion criteria were met: 1) physician request, 2) patient technically difficult to image (per the [place] [employer] guidelines of two or more segments not discernable within the apical view), or 3) questionable left ventricular function. ?
[2023-08-09] MEDS: SODIUM CHLORIDE 0.9% IV 1,000 ML 75 ML IV CONT (12:40)
[2023-08-09] MEDS: diphenhydrAMINE HCl INJ 50 MG/ML VIAL IV PUSH ×2 (17:29→23:57)
[2023-08-10] VITALS (17 sets, daily range): BP systolic 114–158; BP diastolic 51–106; PULSE 59–144; RESP 16–20; TEMP 36.5–38.9; O2SAT 95–98
[2023-08-10] MEDS: diphenhydrAMINE HCl INJ 50 MG/ML VIAL IV PUSH ×3 (05:04→18:24)
[2023-08-10] MEDS: cefTRIAXone 2 GM/NS 100 ML 2 GM/100 ML BAG IVPB (05:05)
[2023-08-10 05:51] LABS: Basophils Absolute Auto 0.1 K/mm3 (0.0-0.1); Basophils Percent Auto 0.4 % (0.2-1.2); Eosinophils Absolute Auto 1.4 K/mm3 (0-0.3); Eosinophils Percent Auto 10.2 % (0-4.4); Hematocrit 32.5 % (42.0-52.0); Hemoglobin 10.7 g/dL (14.0-18.0); Immature Granulocyte Absolute 0.13 K/mm3 (0.00-0.031); Lymphocytes Absolute Auto 2.63 K/mm3 (0.9-3.2); Lymphocytes Percent Auto 19.9 % (18.3-44.2); Mean Corpuscular HGB Conc 32.9 g/dl (32-36); Mean Corpuscular Hemoglobin 30.9 pg (26-34); Mean Corpuscular Volume 93.9 fl (80-100); Mean Platelet Volume 9.9 fl (7.4-10.4); Monocytes Absolute Auto 0.8 K/mm3 (0.1-0.6); Monocytes Percent Auto 6.3 % (2.6-8.5); Neutrophils Absolute Auto 8.2 K/mm3 (1.3-6.7); Neutrophils Percent Auto 62.2 % (45.5-73.1); Platelet Count Result 300 k/mm3 (150-375); Red Blood Count 3.46 M/mm3 (4.6-6.20); Red Cell Distribution Width 14.1 % (11.5-14.5); White Blood Count 13.2 K/mm3 (4.5-10.0)
[2023-08-10 06:28] LABS: Anisocytosis 1+; Platelet Estimate Adequate (Adequate); Schistocytes None Seen
--- NOTE | 2023-08-10 08:03 | PM.IMPN ---
Progress Note: A&P Assessment and Plan (1) Obstructive sleep apnea syndrome: Code(s): G47.33 - Obstructive sleep apnea (adult) (pediatric) Status: Acute (2) Tick bite: Code(s): W57.XXXA - Bitten or stung by nonvenomous insect and other nonvenomous arthropods, initial encounter Status: Acute (3) Sepsis associated hypotension: Code(s): A41.9 - Sepsis, unspecified organism; I95.9 - Hypotension, unspecified Status: Acute Plan patient is 72-year-old male history of sleep apnea and actinic keratosis came to the emergency room with a tick bite and rash on the patient was treated with doxycycline and sent home but patient was re-evaluated in the emergency room tonight with worsening rash shortness of breath difficulty breathing and patient was noted to be hypotensive.? Patient denied chest pain no nausea no vomiting no headaches dizziness palpitation. sepsis/hypotension /tachycardia etiology of the rash unknown differential diagnosis drug-induced rash/ measles/meningococcal /tick bite / viral IV fluid resuscitation Monitor lactic acid levels Repeat CBC CMP Two sets of Blood cultures urine cultures Monitor albumin' Monitoring of mental status. IV antibiotics doxycycline. Rocephin 2 g q.12 Solu-Medrol 125 x 1 upon arrival patient is afebrile, blood pressure stable, leukocytosis is worse patient feels itchy, continue doxycycline and ceftriaxone IV, increase Benadryl 50 mg q.6 hours IV, c/w famotidine 20 mg acute are IV eosinophilia has resolved 6/: rash is subsiding, leukocytosis improving, continue current medication, follow-up Rickettsia, lyme acute renal failure cause dehydration /inflammation /hypotension serum creatinine 2.5 Avoid nephrotoxic drugs. Monitor antihypertensive drug therapy. Avoid NSAIDs. Routine CMP monitoring GFR. Monitor electrolytes especially potassium. 3.3 Pharmacy does medications. creatinine trending down 1.4 today positive troponin. unclear etiology., demand ischemia Due to sepsis, AFib RVR or viral myocarditis [id number] echo. BNP 2100 consult control analyst AFib RVR new onset AFib On control analyst Likely secondary to sepsis, myocarditis? Consult control analyst, appreciate recommendations Start metoprolol p.o. per control analyst now patient has sinus rhythm OBESITY Monitor physical inactivity. Stress monitoring and eating disorder. Referral to weight loss clinic. as outpatient history of sleep apnea Diet and exercise counseling done Subjective Date/time seen: 08/10/23 08:03 Interval history: I saw And examined patient today. patient feels better today, rashes are subsiding, still feels itchy. patient is afebrile, blood pressure stable, patient denies palpitation, chest pain. , blood eosinophilia resolved, kidney function continue to improve Exam Narrative: GENERAL: Pleasant, in no acute distress. Well-nourished. - EYES: EOMI. Anicteric. - HENT: Moist mucous membranes. - LUNGS: Clear to auscultation bilaterally, no wheezing, rhonchi, or rales. - CARDIOVASCULAR: Regular rate and rhythm. No murmur. No JVD. - ABDOMEN: Soft, non-tender and non-distended. No palpable masses. - EXTREMITIES: No edema. Peripheral pulses 2+. Non-tender. - NEUROLOGIC: No focal neurological deficits. CN II-XII grossly intact. - PSYCHIATRIC: Awake, Alert and oriented x 3. Appropriate mood and affect. - SKIN: scattered papular rash over trunk lower extremities upper extremities - LYMPH: No cervical lymphadenopathy. Objective Data Vital Signs Vital Signs: Vital Signs - 24 hr 08/09/23 09:10 08/09/23 09:12 08/09/23 12:00 Temperature Pulse Rate 60 60 64 Respiratory Rate 16 Blood Pressure 145/73 H Pulse Oximetry 100 Oxygen Delivery 08/09/23 09:15 08/09/23 16:00 08/09/23 16:00 Temperature 97.9 F Pulse Rate 58 L 60 Respiratory Rate 18 Blood Pressure 146/70 H Pulse Oximetry
[2023-08-10 09:08] LABS: Procalcitonin 0.4 ng/mL
[2023-08-10] MEDS: FAMOTIDINE 20 MG/2 ML VIAL IV PUSH ×2 (09:56→20:51)
[2023-08-10] MEDS: METOPROLOL SUCCINATE EXT REL 25 MG TABCR PO (09:56)
[2023-08-10] MEDS: ACETAMINOPHEN 325 MG TABLET 650 MG PO ×2 (09:56→20:51)
[2023-08-10] MEDS: APIXABAN 5 MG TABLET PO ×2 (09:56→20:51)
[2023-08-10] MEDS: ATORVASTATIN 40 MG TABLET 80 MG PO (09:56)
--- NOTE | 2023-08-10 10:58 | PM.PNCARD ---
Progress Note: A&P Assessment and Plan (1) Atrial fibrillation with RVR: Code(s): I48.91 - Unspecified atrial fibrillation Status: Acute Assessment and Plan: New diagnosis of atrial fibrillation for the patient. Likely triggered by underlying acute illness with febrile illness, rash, sepsis Patient remains in sinus rhythm generally but does have intermittent tachycardia. Continue Toprol XL 25mg daily -cannot up titrate because of mild bradycardia at times. [id number] is 6 for age, hypertension, history of CVA. Recommend anticoagulation for stroke risk reduction. Continue Eliquis 5mg BID. Echo unremarkable Cardiology will sign off please call with any questions. (2) Elevated troponin: Code(s): R79.89 - Other specified abnormal findings of blood chemistry Status: Acute Assessment and Plan: Mildly elevated. This does not appear to be an acute coronary syndrome. Likely demand ischemia from sepsis, acute febrile illness, ROGE, atrial fibrillation with RVR. No pericardial effusion seen on echo to indicate myocarditis. (3) Acute kidney injury: Code(s): N17.9 - Acute kidney failure, unspecified Status: Acute Assessment and Plan: Agree with IVFs. If ROGE continues to worsen, consider Nephrology consultation. (4) Sepsis associated hypotension: Code(s): A41.9 - Sepsis, unspecified organism; I95.9 - Hypotension, unspecified Status: Acute Assessment and Plan: Management as per primary team. On antibiotics. (5) Acute febrile illness: Code(s): R50.9 - Fever, unspecified Status: Acute Assessment and Plan: Has diffuse rash across his body after getting tick bite. On antibiotics as per primary team. If this continues to worsen, consider Infectious Disease consultation, which would necessitate transfer to another institution that has ID services. (6) Thrombotic stroke involving cerebellar artery: Code(s): I63.349 - Cerebral infarction due to thrombosis of unspecified cerebellar artery Status: Acute Assessment and Plan: History of CVA in 2014. As we are starting NOAC for atrial fibrillation, will stop his ASA. Not on statin at home, will start high-intensity statin. (7) Tick bite: Code(s): W57.XXXA - Bitten or stung by nonvenomous insect and other nonvenomous arthropods, initial encounter Status: Acute Assessment and Plan: Has diffuse rash across his body after getting tick bite. On antibiotics as per primary team. If this continues to worsen, consider Infectious Disease consultation, which would necessitate transfer to another institution that has ID services. Subjective Date/time seen: 08/10/23 10:58 Interval history: Cardiology follow up for atrial fibrillation Date of service 08/10/2023: He's feeling much better today. Rash is resolving. On telemetry he is generally in sinus rhythm but does have intermittent AF RVR, but is asymptomatic. Review of Systems Review of Systems: All systems reviewed & are unremarkable except as noted in HPI and below (HPI) Exam Const: General: comfortable and no acute distress HENMT: Mouth: Yes moist mucous membranes Eyes: General: appearance normal, both eyes and all related structures Sclera: sclerae normal Neck: Neck: supple Resp: Effort & Inspection: normal respiratory effort Auscultation: clear to auscultation bilaterally Cardio: Rate: regular rate Rhythm: regular rhythm Heart sounds: no murmurs Skin: Other: Diffuse rash Neuro: Speech: normal speech Psych: Mental Status: mental status grossly normal Affect: normal affect Objective Data Vital Signs Vital Signs: Vital Signs - 24 hr 08/09/23 12:00 08/09/23 16:00 08/09/23 16:00 Temperature 36.6 C Pulse Rate 64 58 L 60 Respiratory Rate 18 Blood Pressure 146/70 H Pulse Oximetry 98 Oxygen Delivery 08/09/23 20:47 08/09/23 22:00 08/09/23 20:00 Temperature 36.9 C
[2023-08-10] MEDS: SODIUM CHLORIDE 0.9% IV 1,000 ML 100 ML IV CONT ×3 (11:43→20:53)
[2023-08-10] MEDS: DOXYCYCLINE 100 MG/NS 100 ML 100 MG/100 ML BAG IVPB ×2 (12:35)
[2023-08-11] VITALS (14 sets, daily range): BP systolic 129–163; BP diastolic 61–80; PULSE 60–122; RESP 16–20; TEMP 36.8–37.8; O2SAT 95–98
[2023-08-11] MEDS: diphenhydrAMINE HCl INJ 50 MG/ML VIAL IV PUSH ×4 (00:05→17:25)
[2023-08-11] MEDS: DOXYCYCLINE 100 MG/NS 100 ML 100 MG/100 ML BAG IVPB ×2 (00:05→21:20)
[2023-08-11] MEDS: cefTRIAXone 2 GM/NS 100 ML 2 GM/100 ML BAG IVPB (05:33)
[2023-08-11 08:35] LABS: Procalcitonin 0.2 ng/mL
--- NOTE | 2023-08-11 08:52 | PM.IMPN ---
Progress Note: A&P Assessment and Plan (1) Obstructive sleep apnea syndrome: Code(s): G47.33 - Obstructive sleep apnea (adult) (pediatric) Status: Acute (2) Tick bite: Code(s): W57.XXXA - Bitten or stung by nonvenomous insect and other nonvenomous arthropods, initial encounter Status: Acute (3) Sepsis associated hypotension: Code(s): A41.9 - Sepsis, unspecified organism; I95.9 - Hypotension, unspecified Status: Acute Plan patient is 72-year-old male history of sleep apnea and actinic keratosis came to the emergency room with a tick bite and rash on the patient was treated with doxycycline and sent home but patient was re-evaluated in the emergency room tonight with worsening rash shortness of breath difficulty breathing and patient was noted to be hypotensive.? Patient denied chest pain no nausea no vomiting no headaches dizziness palpitation. sepsis/hypotension /tachycardia etiology of the rash unknown differential diagnosis drug-induced rash/ measles/meningococcal /tick bite / viral IV fluid resuscitation Monitor lactic acid levels Repeat CBC CMP Two sets of Blood cultures urine cultures Monitor albumin' Monitoring of mental status. IV antibiotics doxycycline. Rocephin 2 g q.12 Solu-Medrol 125 x 1 upon arrival patient is afebrile, blood pressure stable, leukocytosis is worse patient feels itchy, continue doxycycline and ceftriaxone IV, increase Benadryl 50 mg q.6 hours IV, c/w famotidine 20 mg acute are IV eosinophilia has resolved 08/09: rash is subsiding, leukocytosis improving, continue current medication, follow-up Rickettsia, lyme 08/10: patient had a for overnight, but rashes subsiding, Rickettsia negative, blood culture August 06 negative of bacteria. unclear source of fever, antibiotic fever cannot be rule out, discussed the case with ID pharmacist, will discontinue ceftriaxone, hold morning dose of doxycycline, will resume doxycycline evening, monitor temperature follow-up CBC BMP, blood culture obtained August 09 acute renal failure cause dehydration /inflammation /hypotension serum creatinine 2.5 Avoid nephrotoxic drugs. Monitor antihypertensive drug therapy. Avoid NSAIDs. Routine CMP monitoring GFR. Monitor electrolytes especially potassium. 3.3 Pharmacy does medications. creatinine trending down positive troponin. unclear etiology., demand ischemia Due to sepsis, AFib RVR or viral myocarditis [id number] echo. BNP 2100 consult die holder AFib RVR new onset AFib On die holder Likely secondary to sepsis, myocarditis? Consult die holder, appreciate recommendations Start metoprolol p.o. per die holder now patient has sinus rhythm echocardiogram showed 1. Definity contrast used to improve visualization. 2. Normal left ventricular size and systolic function without wall motion abnormalities and normal ejection fraction. 3. Mildly sclerotic aortic valve with will maintain leaflet excursion. 4. Trivial TR. OBESITY Monitor physical inactivity. Stress monitoring and eating disorder. Referral to weight loss clinic. as outpatient history of sleep apnea Diet and exercise counseling done Subjective Date/time seen: 08/11/23 08:52 Interval history: I saw examined the patient today. patient has fever over the night, repeated blood culture yesterday pending, blood culture on August 06 is no grows. patient rashes are subsiding. Patient denies chest pain, cough, abdomen pain, nausea vomiting diarrhea or dysuria Exam Narrative: GENERAL: Pleasant, in no acute distress. Well-nourished. - EYES: EOMI. Anicteric. - HENT: Moist mucous membranes. - LUNGS: Clear to auscultation bilaterally, no wheezing, rhonchi, or rales. - CARDIOVASCULAR: Regular rate and rhythm. No murmur. No JVD. - ABDOMEN: Soft, non-tender and non-distended. No palpable masses. - EXTREMITIES: No edema. Peripheral pulse
[2023-08-11] MEDS: SODIUM CHLORIDE 0.9% IV 1,000 ML 100 ML IV CONT ×2 (09:18→19:18)
[2023-08-11] MEDS: FAMOTIDINE 20 MG/2 ML VIAL IV PUSH ×2 (09:29→20:25)
[2023-08-11] MEDS: ATORVASTATIN 40 MG TABLET 80 MG PO (09:29)
[2023-08-11] MEDS: METOPROLOL SUCCINATE EXT REL 25 MG TABCR PO (09:30)
[2023-08-11] MEDS: APIXABAN 5 MG TABLET PO ×2 (09:30→20:25)
[2023-08-11] MEDS: ASPIRIN 81 MG ENTERIC TABLET PO (09:31)
[2023-08-11] MEDS: ESCITALOPRAM OXALATE 10 MG TABLET PO (09:31)
[2023-08-11] MEDS: ACETAMINOPHEN 325 MG TABLET 650 MG PO ×2 (11:45→20:25)
[2023-08-11 11:57] LABS: Basophils Percent Auto 0.3 % (0.2-1.2); Eosinophils Absolute Auto 1.5 K/mm3 (0-0.3); Eosinophils Percent Auto 11.6 % (0-4.4); Hematocrit 33.2 % (42.0-52.0); Hemoglobin 10.8 g/dL (14.0-18.0); Immature Granulocyte Absolute 0.15 K/mm3 (0.00-0.031); Immature Granulocyte Percent A 1.1 % (0-0.5); Lymphocytes Absolute Auto 1.54 K/mm3 (0.9-3.2); Lymphocytes Percent Auto 11.8 % (18.3-44.2); Mean Corpuscular HGB Conc 32.5 g/dl (32-36); Mean Corpuscular Hemoglobin 31.8 pg (26-34); Mean Corpuscular Volume 97.6 fl (80-100); Mean Platelet Volume 10.7 fl (7.4-10.4); Monocytes Percent Auto 7.8 % (2.6-8.5); Neutrophils Absolute Auto 8.8 K/mm3 (1.3-6.7); Neutrophils Percent Auto 67.4 % (45.5-73.1); Nucleated Red Blood Cells Perc 0.2 % (0.0-0.2); Platelet Count Result 315 k/mm3 (150-375); Red Cell Distribution Width 14.6 % (11.5-14.5); White Blood Count 13.1 K/mm3 (4.5-10.0)
[2023-08-11 12:07] LABS: Anion Gap 7 mmol/L (4-12); Blood Urea Nitrogen 17 mg/dL (9-20); Calcium 8.2 mg/dL (8.4-10.2); Carbon Dioxide 24 mmol/L (22-30); Chloride 108 mmol/L (98-107); Estimated CRCL calculation 72 ml/min; Estimated Glomerular Filt Rate > 60; Glucose 94 mg/dL (65-110); Potassium 3.2 mmol/L (3.4-5.0); Sodium 139 mmol/L (137-145)
[2023-08-11 13:11] LABS: Alanine Aminotransferase 28 U/L (6-50); Albumin Level 3.1 g/dL (3.5-5.1); Alkaline Phosphatase 85 U/L (38-126); Anion Gap 7 mmol/L (4-12); Aspartate Amino Transferase 29 U/L (17-59); Bilirubin,Total 0.4 mg/dL (0.2-1.3); Blood Urea Nitrogen 17 mg/dL (9-20); Calcium 8.2 mg/dL (8.4-10.2); Carbon Dioxide 24 mmol/L (22-30); Chloride 108 mmol/L (98-107); Estimated CRCL calculation 72 ml/min; Estimated Glomerular Filt Rate > 60; Glucose 91 mg/dL (65-110); Potassium 3.2 mmol/L (3.4-5.0); Sodium 139 mmol/L (137-145)
[2023-08-11 13:14] LABS: Atypical Lymphocytes Present; Platelet Estimate Adequate (Adequate); Schistocytes None Seen
[2023-08-11 17:28] LABS: Lyme Disease Ab (IgM), Blot NEGATIVE (NEGATIVE); Lyme Disease Ab(IgG), Blot NEGATIVE (NEGATIVE)
[2023-08-11] MEDS: guaiFENesin 12 HR 600 MG TABCR PO (22:16)
[2023-08-11] MEDS: DOCUSATE SODIUM 100 MG CAPSULE PO (22:16)
[2023-08-12] VITALS (8 sets, daily range): BP systolic 117–152; BP diastolic 56–85; PULSE 81–148; RESP 18–24; TEMP 36.5–36.9; O2SAT 97–99
[2023-08-12] MEDS: diphenhydrAMINE HCl INJ 50 MG/ML VIAL 25 MG IV PUSH ×2 (00:34→05:27)
[2023-08-12 05:01] LABS: Basophils Percent Auto 0.2 % (0.2-1.2); Eosinophils Absolute Auto 1.8 K/mm3 (0-0.3); Eosinophils Percent Auto 10.9 % (0-4.4); Hematocrit 35.3 % (42.0-52.0); Hemoglobin 11.4 g/dL (14.0-18.0); Immature Granulocyte Absolute 0.14 K/mm3 (0.00-0.031); Immature Granulocyte Percent A 0.8 % (0-0.5); Lymphocytes Percent Auto 10.7 % (18.3-44.2); Mean Corpuscular HGB Conc 32.3 g/dl (32-36); Mean Corpuscular Hemoglobin 30.6 pg (26-34); Mean Corpuscular Volume 94.6 fl (80-100); Mean Platelet Volume 9.3 fl (7.4-10.4); Monocytes Absolute Auto 0.8 K/mm3 (0.1-0.6); Monocytes Percent Auto 4.6 % (2.6-8.5); Neutrophils Absolute Auto 12.3 K/mm3 (1.3-6.7); Neutrophils Percent Auto 72.8 % (45.5-73.1); Platelet Count Result 295 k/mm3 (150-375); Red Blood Count 3.73 M/mm3 (4.6-6.20); Red Cell Distribution Width 14.3 % (11.5-14.5); White Blood Count 16.9 K/mm3 (4.5-10.0)
[2023-08-12 05:27] LABS: Anisocytosis 1+; Atypical Lymphocytes Present; Platelet Estimate Adequate (Adequate); Schistocytes None Seen
[2023-08-12 05:29] LABS: Procalcitonin 0.3 ng/mL
[2023-08-12] MEDS: SODIUM CHLORIDE 0.9% IV 1,000 ML 100 ML IV CONT (07:29)
[2023-08-12] MEDS: METOPROLOL SUCCINATE EXT REL 25 MG TABCR PO (07:56)
[2023-08-12] MEDS: ASPIRIN 81 MG ENTERIC TABLET PO (09:46)
[2023-08-12] MEDS: ATORVASTATIN 40 MG TABLET 80 MG PO (09:47)
[2023-08-12] MEDS: FAMOTIDINE 20 MG/2 ML VIAL IV PUSH (09:47)
[2023-08-12] MEDS: DOXYCYCLINE HYCLATE 100 MG TABLET PO (09:47)
[2023-08-12] MEDS: FUROSEMIDE INJ 40 MG/4 ML VIAL IV PUSH (09:47)
[2023-08-12] MEDS: ESCITALOPRAM OXALATE 10 MG TABLET PO (09:47)
[2023-08-12] MEDS: APIXABAN 5 MG TABLET PO (09:47)
[2023-08-12 14:08] LABS: Anion Gap 6 mmol/L (4-12); Blood Urea Nitrogen 17 mg/dL (9-20); Calcium 8.3 mg/dL (8.4-10.2); Carbon Dioxide 28 mmol/L (22-30); Chloride 105 mmol/L (98-107); Estimated CRCL calculation 66 ml/min; Estimated Glomerular Filt Rate 60; Glucose 90 mg/dL (65-110); Potassium 3.9 mmol/L (3.4-5.0); Sodium 139 mmol/L (137-145)
--- NOTE | 2023-08-12 14:26 | PM.DS ---
DS: Admitting Diagnosis Discharge Date 08/12/2023 1015 Admitting Diagnosis Acute Lyme disease pneumonia DS: Discharge Diagnosis Discharge Diagnosis (1) Obstructive sleep apnea syndrome: Code(s): G47.33 - Obstructive sleep apnea (adult) (pediatric) Status: Acute (2) Tick bite: Code(s): W57.XXXA - Bitten or stung by nonvenomous insect and other nonvenomous arthropods, initial encounter Status: Acute (3) Sepsis associated hypotension: Code(s): A41.9 - Sepsis, unspecified organism; I95.9 - Hypotension, unspecified Status: Acute (4) Lyme disease: Code(s): A69.20 - Lyme disease, unspecified Status: Acute (5) Acute metabolic encephalopathy: Code(s): G93.41 - Metabolic encephalopathy Status: Acute Plan patient is 72-year-old male history of sleep apnea and actinic keratosis came to the emergency room with a tick bite and rash on the patient was treated with doxycycline and sent home but patient was re-evaluated in the emergency room tonight with worsening rash shortness of breath difficulty breathing and patient was noted to be hypotensive.? Patient denied chest pain no nausea no vomiting no headaches dizziness palpitation. sepsis/hypotension /tachycardia etiology of the rash unknown differential diagnosis drug-induced rash/ measles/meningococcal /tick bite / viral IV fluid resuscitation Monitor lactic acid levels Repeat CBC CMP Two sets of Blood cultures urine cultures Monitor albumin' Monitoring of mental status. IV antibiotics doxycycline. Rocephin 2 g q.12 Solu-Medrol 125 x 1 upon arrival patient is afebrile, blood pressure stable, leukocytosis is worse patient feels itchy, continue doxycycline and ceftriaxone IV, increase Benadryl 50 mg q.6 hours IV, c/w famotidine 20 mg acute are IV eosinophilia has resolved 08/09: rash is subsiding, leukocytosis improving, continue current medication, follow-up Rickettsia, lyme 08/10: patient had a for overnight, but rashes subsiding, Rickettsia negative, blood culture August 06 negative of bacteria. unclear source of fever, antibiotic fever cannot be rule out, discussed the case with ID pharmacist, will discontinue ceftriaxone, hold morning dose of doxycycline, will resume doxycycline evening, monitor temperature follow-up CBC BMP, blood culture obtained August 09 acute renal failure cause dehydration /inflammation /hypotension serum creatinine 2.5 Avoid nephrotoxic drugs. Monitor antihypertensive drug therapy. Avoid NSAIDs. Routine CMP monitoring GFR. Monitor electrolytes especially potassium. 3.3 Pharmacy does medications. creatinine trending down positive troponin. unclear etiology., demand ischemia Due to sepsis, AFib RVR or viral myocarditis [id number] echo. BNP 2100 consult procedure analyst AFib RVR new onset AFib On procedure analyst Likely secondary to sepsis, myocarditis? Consult procedure analyst, appreciate recommendations Start metoprolol p.o. per procedure analyst now patient has sinus rhythm echocardiogram showed 1. Definity contrast used to improve visualization. 2. Normal left ventricular size and systolic function without wall motion abnormalities and normal ejection fraction. 3. Mildly sclerotic aortic valve with will maintain leaflet excursion. 4. Trivial TR. OBESITY Monitor physical inactivity. Stress monitoring and eating disorder. Referral to weight loss clinic. as outpatient history of sleep apnea Diet and exercise counseling done DS: Summary Hospital Course Hospital Course: Patient is 72-year-old male with a past medical history of sleep apnea, a syntax keratoses who presented to the ED with a tick bite and rash. In the initially patient was seen and treated on the and was given antibiotics and was sent home. Patient was back in the emergency room with difficulty breathing along with altered mental status. Patient was initiat
== END 2023-08-12 16:10 | disposition home or self-care (01) | DRG 872 ==
LOC: ANHED 08-08 00:46 → ANHIMU 08-08 01:23 → ANH2MED 08-09 04:35
PROVIDERS: Hospitalist; Internal Medicine; Admitting Provider Internal Medicine; Emergency Provider Emergency Medicine; PCP Family Medicine; Visit Provider Nurse Practitioner
DX: A41.89 Other specified sepsis (principal); A69.20 Lyme disease, unspecified; N17.9 Acute kidney failure, unspecified; T63.481A Toxic effect of venom of other arthropod, accidental (unintentional), initial encounter; E86.0 Dehydration; E66.9 Obesity, unspecified; G47.33 Obstructive sleep apnea (adult) (pediatric); I48.91 Unspecified atrial fibrillation; I95.9 Hypotension, unspecified; I10 Essential (primary) hypertension; L57.0 Actinic keratosis; R79.89 Other specified abnormal findings of blood chemistry; Z79.82 Long term (current) use of aspirin; Z99.89 Dependence on other enabling machines and devices; M17.11 Unilateral primary osteoarthritis, right knee; Z86.73 Personal history of transient ischemic attack (TIA), and cerebral infarction without residual deficits; Z87.891 Personal history of nicotine dependence
CPT/HCPCS: 36415; 71045; 80048; 80053; 81001; 83605; 83735; 83880; 84145; 84443; 84484; 85025; 85610; 85652; 85730; 86140; 86617; 86757; 87040; 93005; 96361; 96365; 96372; 96375; 99285; A9270; C8929; G0378; J0696; J1200; J1650; J1940; J2919; J7030; Q9957

== ENCOUNTER 2023-08-23 15:15 | Outpatient (CLI) | payer MEDICARE, OTHER, SELFPAY ==
[2023-08-23 19:05] LABS: Hematocrit 32.8 % (42.0-52.0); Hemoglobin 10.5 g/dL (14.0-18.0); Mean Corpuscular Hemoglobin 30.6 pg (26-34); Mean Corpuscular Volume 95.6 fl (80-100); Mean Platelet Volume 10.8 fl (7.4-10.4); Platelet Count Result 344 k/mm3 (150-375); Red Blood Count 3.43 M/mm3 (4.6-6.20); Red Cell Distribution Width 14.4 % (11.5-14.5); White Blood Count 9.3 K/mm3 (4.5-10.0)
[2023-08-23 19:43] LABS: Eosinophils Percent Manual 14 % (0-4); Lymphocytes Absolute Manual 2.32 K/mm3 (1.1-4.5); Monocytes Absolute Manual 0.83 K/mm3 (0.1-0.90); Monocytes Percent Manual 9 % (3-9); Neutrophils Percent Manual 52 % (46-73); Platelet Estimate Adequate (Adequate); Total Cells Counted 100
[2023-08-23 19:44] LABS: Hypochromasia 1+; Schistocytes None Seen
[2023-08-23 20:55] LABS: Alanine Aminotransferase 36 U/L (6-50); Albumin Level 3.4 g/dL (3.5-5.1); Alkaline Phosphatase 85 U/L (38-126); Anion Gap 4 mmol/L (4-12); Aspartate Amino Transferase 30 U/L (17-59); Bilirubin,Total 0.3 mg/dL (0.2-1.3); Blood Urea Nitrogen 20 mg/dL (9-20); Calcium 8.9 mg/dL (8.4-10.2); Carbon Dioxide 31 mmol/L (22-30); Chloride 104 mmol/L (98-107); Estimated Glomerular Filt Rate > 60; Glucose 90 mg/dL (65-110); Potassium 3.8 mmol/L (3.4-5.0); Sodium 139 mmol/L (137-145)
== END 2023-08-23 15:16 | disposition home or self-care (01) ==
LOC: ANHGOSHLAB 15:16
PROVIDERS: PCP Family Medicine; Visit Provider Family Medicine
DX: R53.83 Other fatigue (principal); Z13.228 Encounter for screening for other metabolic disorders
CPT/HCPCS: 36415; 80053; 85025

== ENCOUNTER 2023-11-29 08:04 | Outpatient (CLI) | payer MEDICARE, OTHER, SELFPAY ==
[2023-11-29 10:20] LABS: Basophils Absolute Auto 0.1 K/mm3 (0.0-0.1); Basophils Percent Auto 0.9 % (0.2-1.2); Eosinophils Absolute Auto 0.7 K/mm3 (0-0.3); Eosinophils Percent Auto 10.3 % (0-4.4); Hematocrit 38.3 % (42.0-52.0); Hemoglobin 12.2 g/dL (14.0-18.0); Immature Granulocyte Absolute 0.02 K/mm3 (0.00-0.031); Immature Granulocyte Percent A 0.3 % (0-0.5); Lymphocytes Absolute Auto 1.58 K/mm3 (0.9-3.2); Lymphocytes Percent Auto 22.6 % (18.3-44.2); Mean Corpuscular HGB Conc 31.9 g/dl (32-36); Mean Corpuscular Hemoglobin 31.1 pg (26-34); Mean Corpuscular Volume 97.7 fl (80-100); Mean Platelet Volume 9.2 fl (7.4-10.4); Monocytes Absolute Auto 0.7 K/mm3 (0.1-0.6); Monocytes Percent Auto 9.3 % (2.6-8.5); Neutrophils Percent Auto 56.6 % (45.5-73.1); Platelet Count Result 265 k/mm3 (150-375); Red Blood Count 3.92 M/mm3 (4.6-6.20); Red Cell Distribution Width 14.1 % (11.5-14.5)
[2023-11-29 10:34] LABS: Albumin Level 4.3 g/dL (3.5-5.1); Anion Gap 8 mmol/L (4-12); Blood Urea Nitrogen 31 mg/dL (9-20); Calcium 9.6 mg/dL (8.4-10.2); Carbon Dioxide 29 mmol/L (22-30); Chloride 101 mmol/L (98-107); Estimated Glomerular Filt Rate > 60; Glucose 101 mg/dL (65-110); Hemoglobin A1C 5.6 % (<5.7); Potassium 4.1 mmol/L (3.4-5.0); Sodium 138 mmol/L (137-145)
[2023-11-29 10:37] LABS: Urine Cotinine NEGATIVE
== END 2023-11-29 08:05 | disposition home or self-care (01) ==
PROVIDERS: PCP Family Medicine; Visit Provider Orthopaedic Surgery
DX: M17.11 Unilateral primary osteoarthritis, right knee (principal); Z01.818 Encounter for other preprocedural examination
CPT/HCPCS: 80048; 80307; 82040; 83036; 85025; 87081

== ENCOUNTER 2023-12-16 00:41 | Day surgery (SDC) | payer MEDICARE, OTHER, SELFPAY ==
[2023-11-29 08:18] VITALS: BMI 34.2
--- NOTE | 2023-11-29 09:00 | PC.NURSE ---
Report to the Outpatient Waiting Room, entrance under the green pavilion located off [facility], at time 6 AM on date _12/16/23 . Planned Procedure Time: _7:30 AM .? Time changes happen often and if your time is changed the preop area will call you the afternoon before. - You and your visitor will be asked to self-screen and do not enter if you have any COVID symptoms. Please call surgeon if you need to reschedule. - A mask is optional within the hospital at this time. Patients may have clear liquids (water, carbonated beverages, clear teas, apple juice) until 3 hours prior to surgery( 4:30 AM) with a maximum of 20 ounces. - No food from midnight until time of surgery and no smoking - Infants may have breast milk until 4 hours before surgery, infant formula 6 hours prior to surgery. - Children will be allowed to drink immediately following surgery.? If applicable, please bring a bottle or sippy cup to assist with drinking. Juice, water, soda, and popsicles are readily available.? For infants on formula, please bring formula the day of surgery.? Pacifiers are allowed. Take only the following medications with a SIP of water on the morning of surgery: _ESCITALOPRAM DO NOT STOP ANY OF YOUR OTHER PRESCRIPTION MEDICATIONS PRIOR TO SURGERY EXCEPT THE FOLLOWING Medications to discontinue per physician _HOLD DICLOFENAC 7 DAYS PRE OP PER DR SOSA. LAST DOSE12/08/23 PT STATES CONTINUE ASPIRIN PER DR SOSA BUT DON'T TAKE MORNING OF SURGERY.HOLD ALL VITAMINS AND SUPPLEMENTS 3 DAYS PRE OP .LAST DOSE12/12/23. MAY TAKE TYLENOL IF NEEDED FOR PAIN_AND CAN CONTINUE CELECOXIB PER DR SOSA Please no make-up, nail chilean, hairspray, perfume, deodorant, or body powder the day of surgery.? No jewelry (including any body piercings) or valuables the day of surgery, leave them at home.? Please take a shower or bath the night before, or the morning of, surgery with an antibacterial soap.? Wear comfortable, loose fitting clothing.? Children are encouraged to wear pajamas. - Jewelry must be removed prior to entering the operating room.? Rings and piercings that are not removed may be cut off. - The hospital will not accept responsibility for valuables.? - Please leave all valuables, including medications, at home the day of surgery. If you are going home after surgery, a licensed construction driver must drive you home.? - NO public transportation without another adult if you receive anesthesia. - We recommend that an adult stay with you for 24 hours following discharge. - We also recommend that you do not drive, make important decision, drink alcoholic beverages, or take any drugs that were not prescribed by your health care provider for at least 24 hours after your discharge time. Follow any additional instructions given to you from your surgeon. VERBAL AND WRITTEN instructions given to __PATIENT and asked if any additional questions and then verbalized understanding. Patient advised to call surgeon office or pre surgery nurse liaison [phone] if any additional questions.
[2023-11-29 09:24] VITALS: BP 144/66; PULSE 47; RESP 18; TEMP 36.9; O2SAT 98
--- NOTE | 2023-12-13 11:34 | PM.IMHP ---
H&P: HPI History of Present Illness Date/Time: 12/13/23 11:34 Chief Complaint: Right knee DJD Narrative: 73-year-old male presents today for a right total knee arthroplasty in cortisone injection in the left knee Patient has been having severe symptoms in both of his knees for years. He has been treating this nonsurgically with cortisone injections as well as diclofenac. At this point nonsurgical treatment is not giving him significant improvement of his symptoms. He feels he is ready proceed with total knee arthroplasty at this point. Patient was recently admitted to the hospital in July of this year for Lyme disease. He apparently was septic. He also had new onset of AFib and was placed on anticoagulation. The AFib has resolved and patient has chosen not to continue taking any anticoagulation. While he is taking the anticoagulation is not able take the diclofenac and without that his knees for miserable in pain. He has discussed this matter with the supervisor litharge, they did advise him of his risk for recurrence of the AFib as well as possibility of stroke. Patient has had a vertebral artery thrombosis in 2013. He has had no further signs or symptoms of stroke or TIA. He does take a baby aspirin daily. He has had a recent carotid duplex ultrasound done which showed 50% stenosis in the left and right internal carotid arteries. He has also had an echo done in August of this year his heart. It showed no abnormalities. Ejection fraction was at 60-65%. Review of Systems Review of Systems: All systems reviewed & are unremarkable except as noted in HPI and below PMFSH Past Medical History Medical History (Updated 12/13/23 @ 11:43 by CJ Greene) AK (actinic keratosis) VIRGILIO on CPAP Osteoarthritis of right knee medial compartment Overweight Skin cancer screening Skin neoplasm Stroke 2014 Surgical History Surgical History History of repair of rotator cuff right Family History Family History Mother Cancer Cerebrovascular accident Lung cancer C. difficile colitis Father Hypertension Pacemaker Social History Social History Smoking packs per day: 1 Smoking cigarettes per day: 20.0 Years smoked: 30 Smoking pack-years: 30.00 Smoking status: Former smoker Tobacco type: cigarettes Second hand tobacco smoke exposure: No Smoking end date: 03/08/98 Additional smoking assessment comments: SMOKED CIGARS FOR 20 YRS.QUIT 2006 DENIES ANY FORM OF TOBACCO USE Alcohol intake: current Drinks per week: 10 Alcohol use details: occasonal Substance use: never Substance use type: does not use Do You Feel Safe in your Home?: Yes Lack of Transportation: No Lack of Food: Never True Current Housing: I Have Housing Concerned About Future Housing: Decline to Answer Difficulty Paying Gas/Electric Bills: Decline to Answer Difficulty Paying for Meds: Decline to Answer Currently Unemployed: Decline to Answer Education: Decline to Answer Difficulty w/ Childcare or Family Care: Decline to Answer Living arrangements: with family 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/Education: retired 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
[2023-12-16] VITALS (13 sets, daily range): BP systolic 130–161; BP diastolic 51–66; PULSE 52–77; RESP 12–20; TEMP 36.4–37.8; O2SAT 95–100
--- NOTE | ~2023-12-16 | XR_ITS ---
EXAMINATION: [id number] DATE: 12/16/2023 11:55 INDICATION: Right knee arthroplasty. Postop. TECHNIQUE: 2 views of right knee were obtained. COMPARISON: Right knee radiographs 03/24/2023 FINDINGS: There is a total right knee arthroplasty without patellar resurfacing in near-anatomic alig nment. No fracture. There are tiny osteophytes of the patella. There is gas in the knee joint and sof t tissues, consistent with recent surgery. IMPRESSION: 1. Total right knee arthroplasty in near-anatomic alignment. Reviewed, dictated and finalized at location A.
--- NOTE | ~2023-12-16 | CT_ITS ---
History: Upper extremity paresthesias PROCEDURE: CT head without contrast. COMPARISON: 12/30/2016 TECHNIQUE: Axial imaging of the head performed from the skull base to the vertex without IV contrast. Sagittal a nd coronal reformations obtained. FINDINGS: The ventricles are enlarged, but equal to the degree of sulcal prominence, a normal finding in the se nescent brain There is no mass, mass effect or midline shift. There is no abnormal extra-axial fluid collection or intracranial hemorrhage. Visualized paranasal sinuses are clear. The mastoid air cells are well aerated. There are no skull fractures. Impression: Age-related changes, with acute intracranial hemorrhage or suspicious mass effect. Reviewed, dictated and finalized at location A. Impression: Age-related changes, with acute intracranial hemorrhage or suspicious mass effe ct.
[2023-12-16] MEDS: TRANEXAMIC ACID 1,000MG/ISO100 1,000 MG/100 ML BAG 200 MG IVPB (07:00)
[2023-12-16] MEDS: VANCOMYCIN 1,500 MG/NS 500 ML BAG 250 MG IVPB (07:00)
[2023-12-16] MEDS: ACETAMINOPHEN 500 MG TABLET 1000 MG PO (07:00)
[2023-12-16] MEDS: LACTATED RINGERS 1,000 ML 30 ML IV CONT ×2 (07:00→11:56)
--- NOTE | 2023-12-16 07:14 | WPDANESEPPF ---
Anes - Initial Pre Proc Eval Procedure: Operation Date: 12/16/23 07:30 Proposed Procedures p Right Total Knee Arthroplasty, Cortisone Injection Left Knee - Rick Castaneda MD Date/Time: 12/16/23 07:14 Surgeon: Rick Castaneda MD Pre Op Diagnosis: OA right knee, left knee OA Patient Data Age: 73 Gender: M Height: 1.8 m Weight: 111.2 kg Last Vital Signs Temp 98.4 F 11/29/23 09:24 Pulse 47 L 11/29/23 09:24 Resp 18 11/29/23 09:24 BP 144/66 H 11/29/23 09:24 Pulse Ox 98 11/29/23 09:24 O2 Del Method Room Air 11/29/23 09:24 Allergies Allergy/AdvReac Type Severity Reaction Status Date / Time Opioids - Morphine Analogues AdvReac Severe Other Verified 12/02/23 09:41 [id number]-RVD-SaI Reductase AdvReac Joint Pain Verified 12/02/23 09:41 Inhibitor Home Medications Medication Instructions Recorded Confirmed Type aspirin 81 mg tablet,delayed 81 mg PO DAILY 03/02/23 12/02/23 History release escitalopram oxalate 10 mg tablet 10 mg PO DAILY #90 tabs 06/17/23 12/02/23 Rx acetaminophen 500 mg tablet 500 mg PO Q6H PRN .arthritic pain 08/08/23 12/02/23 History (Acetaminophen Extra Strength) lisinopril 40 mg tablet 40 mg PO DAILY #90 tabs 08/26/23 12/02/23 Rx celecoxib 200 mg capsule (Celebrex) 200 mg PO DAILY #7 caps 11/24/23 12/02/23 Rx diclofenac sodium 75 mg 75 mg PO BID 11/29/23 12/02/23 History tablet,delayed release lactobacillus combination no.8 3 3 cell PO DAILY 11/29/23 12/02/23 History billion cell capsule omega-3 fatty acids 1,000 mg PO DAILY 11/29/23 12/02/23 History Patient hx anesthesia problems: none Family hx anesthesia problems: none Results Review: All pre-operative results and documents have been reviewed as part of the pre-operative evaluation. [facility] Past Medical History Medical History (Updated 12/13/23 @ 11:43 by CJ Greene) [place] (actinic keratosis) VIRGILIO on CPAP Osteoarthritis of right knee medial compartment Overweight Skin cancer screening Skin neoplasm Stroke 2013 Surgical History Surgical History History of repair of rotator cuff right Family History Family History Mother Cancer Cerebrovascular accident Lung cancer C. difficile colitis Father Hypertension Pacemaker Social History Social History Smoking packs per day: 1 Smoking cigarettes per day: 20.0 Years smoked: 30 Smoking pack-years: 30.00 Smoking status: Former smoker Tobacco type: cigarettes Second hand tobacco smoke exposure: No Smoking end date: 03/08/98 Additional smoking assessment comments: SMOKED CIGARS FOR 20 YRS.QUIT 2005 DENIES ANY FORM OF TOBACCO USE Alcohol intake: current Drinks per week: 10 Alcohol use details: occasonal Substance use: never Substance use type: does not use Do You Feel Safe in your Home?: Yes Lack of Transportation: No Lack of Food: Never True Current Housing: I Have Housing Concerned About Future Housing: Decline to Answer Difficulty Paying Gas/Electric Bills: Decline to Answer Difficulty Paying for Meds: Decline to Answer Currently Unemployed: Decline to Answer Education: Decline to Answer Difficulty w/ Childcare or Family Care: Decline to Answer Living arrangements: with family Occupation/Education: retired 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
--- NOTE | 2023-12-16 07:15 | WPDHPUPDATE1 ---
History and Physical Update Update Date/Time: 12/16/23 07:15 History and Physical has been reviewed, including an updated exam of the patient. There are NO changes in the patient's condition. Risks, benefits, and alternatives have been discussed and questions answered. Patient agrees to proceed with procedure.
[2023-12-16] MEDS: ceFAZolin 2 GM/D5W 50 ML 2 GM/50 ML BAG IVPB ×3 (07:34→22:17)
[2023-12-16] MEDS: SODIUM CHLORIDE 0.9% IV 37.7 ML, MORPHINE SULFATE INJ (*CRX) 2 MG, ROPivacaine HCL 1% 2... INFILTRATE (08:14)
[2023-12-16] MEDS: ceFAZolin SODIUM 1 GM VIAL 3 GM (08:14)
[2023-12-16] MEDS: methylPREDNISolone ACETATE 80 MG/ML VIAL IM (08:16)
[2023-12-16] MEDS: GENTAMICIN BONE CEMENT REFOBACIN 1 EACH TOPICAL (10:36)
[2023-12-16] MEDS: ceFAZolin SODIUM 1 GM VIAL 2 GM IV PUSH (10:53)
[2023-12-16] MEDS: TRANEXAMIC ACID 1,000 MG/10 ML AMPUL 1000 MG IV PUSH (10:56)
[2023-12-16] MEDS: KETOROLAC 15 MG/ML VIAL (*BKC) IV PUSH ×3 (10:56→22:17)
--- NOTE | 2023-12-16 11:52 | W.PM.PROC2 ---
Procedure Note - Detailed Date of Procedure 12/16/23 Pre-op Diagnosis OA right knee, left knee OA Post-op Diagnosis Same Procedure Performed Cortisone injection left knee, right total knee arthroplasty Surgeon Rick Castaneda MD Asbestos Worker Alejandro Davis Anesthesia General Description of Procedure Patient was brought to the operating room and general anesthesia was administered. He received 2 g of Ancef weight based vancomycin 1 g of tranexamic acid preoperatively. The left knee was prepped with ChloraPrep and 80 mg of Depo-Medrol 3 cc 1% lidocaine injected without difficulty. The right knee was prepped draped usual fashion. Under anesthesia he continue to show a 15 degree flexion contracture with no medial pseudolaxity. He flexed to about 110? under anesthesia. Limb was exsanguinated tourniquet elevated to 300 mmHg. Step anterior incision was made and standard parapatellar arthrotomy utilized. Partial excision of infrapatellar fat pad was performed and quadriceps synovectomy carried out. The patella had some osteophyte the inferior pole medial margin which was debrided and remainder of the patella had fairly normal articular cartilage with no deformity I felt it was suitable for non resurfacing. A minimal lateral facetectomy was performed. A guide precious was inserted on femoral canal after aspiration of canal contents and using the 5 degree valgus cutting bushing 9 mm of bone removed the distal femur. Because of the wear medially, this removed equal amounts medially laterally. Next the tibial plateau was cut. My goal was to cut just under the low point of medial tibial plateau and the 1st cut was a little shallow that point and we cut additional 2.5 mm which brought us just under the low point of the medial tibial plateau. The cut was made perpendicular to the axis of the tibia. Meniscal remnants were excised the PCL was recessed. Flexion gap measured 8 mm medially and 12 mm laterally. We found that the femoral sizing guide set at 5? external rotation matching Whitesides line. Posterior referencing pinholes were placed and a size 72.5 cutting block was applied AP and chamfer cuts were made and the 72.5 size fit appropriately. The knee except at the 10 mm CR insert at 90? of flexion. There was significant flexion contracture at this point. After confirming a perfectly flat tibial plateau surface, the tibia was sized to a size 79 vanguard placed at proper rotation and punched and a conservative removal of medial and posteromedial osteophyte was carried out at this time. Central posterior capsular release was performed. We trialed with the 10 insert and we found that we still had about a 10 degree flexion contracture with no play to valgus stress and 2-3 mm of play to varus stress laterally. An additional removal of posterior medial osteophyte from the tibia was performed to give better varus valgus balance in extension and the additional posteromedial tibial plateau bone posterior to the tibial component was removed. We did not strip the medial collateral ligament other than to expose the bone to be removed. Additional mm of bone was removed from the distal femur at this time and posterior femoral osteophyte was removed. With this done we had approximately 5 degree flexion contracture. And at 5? there was 1 or 2 mm of play medially and 2 or 3 mm of play laterally. Therefore I felt the posterior capsule was the limiting factor. We returned the posterior capsule release and released it final way to the tendon origin of the medial gastroc and to the lateral gastroc. On read trialing the knee had a barely perceptible bounce but less than 1 mm of play medially to valgus stress and still had 2-3 mm of play laterally. Anterior drawer stability was appropriate 1 mm lateral opening at 90? and 2 mm medial opening at 90?. We removed 1 additional mm of bone from the medial femoral condyle distally transitioned this to the lateral femoral condyle and c
[2023-12-16] MEDS: fentaNYL CITRATE INJ (*CRX) 100 MCG/2 ML VIAL 25 MCG IV PUSH ×4 (12:10→13:01)
--- NOTE | 2023-12-16 12:10 | PM.OP ---
Procedure Note - Brief Procedure Note - Brief Date of procedure: 12/16/23 OA right knee, left knee OA Procedure performed: Right total knee arthroplasty Surgeon: CJ Greene Findings: 73-year-old male who underwent right total knee arthroplasty on 12/15. I was involved in the procedure including positioning the patient on the OR table and 1st assisting through the time of surgery. Total time spent was 3-1/2 hours
--- NOTE | 2023-12-16 13:51 | PC.NURSE ---
This patient, Lyndon Salgado, was admitted to 3 [facility] Surg Room 315-01. Patient/family oriented to hospital policies and general routines including ID bracelet, bed and alarms, visiting hours, pain management, procedures, bathroom and other care routines, personal items, smoking policy, room service/diet, and visiting hours. Information on how to activate the Rapid Response Team has been discussed. Patient/Family are encouraged to report perceived risks to care and to ask questions if they do not understand what they are told or what they should do.
[2023-12-16] MEDS: ONDANSETRON INJ 4 MG/2 ML VIAL IV PUSH (14:06)
[2023-12-16] MEDS: oxyCODONE HCL (*CRX) 5 MG TAB IR PO ×3 (14:06→22:17)
[2023-12-16] MEDS: SODIUM CHLORIDE 0.9% IV 1,000 ML 125 ML IV CONT (14:06)
[2023-12-16] MEDS: ACETAMINOPHEN 325 MG TABLET 650 MG PO ×3 (14:06→22:17)
--- NOTE | 2023-12-16 14:45 | PM.IMCN ---
Assessment and Plan Assessment and plan (1) Osteoarthritis of both knees: Code(s): M17.0 - Bilateral primary osteoarthritis of knee Status: Acute Assessment and Plan: Postoperative day 0 status post right total knee arthroplasty and cortisone injection of the left knee. Wound care, pain control, and DVT prophylaxis deferred to Dr. Castaneda. Check baseline labs in a.m. (2) Numbness of fingers: Code(s): R20.0 - Anesthesia of skin Status: Acute Assessment and Plan: Patient told his nurse at 20:00 that his right 1st and 2nd fingers feel numb and tingly and have felt that way since he awoke from surgery. He has subjective decrease in sensation the fingers but is otherwise neurologically intact with no other deficits. May be related to position however he denies ever having symptoms of carpal tunnel. The patient has a history of paroxysmal atrial fibrillation but elected to stop taking anticoagulation as he needed the diclofenac for his knee pain and was told he should not take both of them. Stat brain CT ordered. Monitor on telemetry. Neurologic checks q.4 hours. Brain MRI ordered for a.m. (3) Hypertension: Qualifiers: Hypertension type: primary hypertension Qualified Code(s): I10 - Essential (primary) hypertension Code(s): I10 - Essential (primary) hypertension Status: Acute Assessment and Plan: Blood pressures have been running a bit high postoperatively, likely due to pain. Continue lisinopril 40 mg daily and trend blood pressures closely. (4) Obstructive sleep apnea on CPAP: Code(s): G47.33 - Obstructive sleep apnea (adult) (pediatric) Status: Acute Assessment and Plan: CPAP will be provided for the patient to use while hospitalized. (5) Paroxysmal atrial fibrillation: Code(s): I48.0 - Paroxysmal atrial fibrillation Status: Acute Assessment and Plan: Currently in a sinus rhythm; he is not on rate-controlling medications or anticoagulation as above. Plan Thank you for allowing us to participate in this patient's care. Please do not hesitate to contact us with any questions. HPI Date of Consult Consult date: 12/16/23 Requesting Physician: Rick Castaneda MD Primary Care Provider: Rickey Espino, Consult Narrative Reason for consult: medical management Narrative: This is a 73-year-old male with history of stroke, paroxysmal atrial fibrillation, hypertension, obstructive sleep apnea, Lyme disease, and osteoarthritis whom the hospitalist service has been consulted for help managing his medical conditions postoperatively. He endorses ongoing pain in his right knee for quite some time despite conservative outpatient therapy and he elected for replacement today. Surgery was performed under general anesthesia with no immediate complications documented and an estimated blood loss of 250 mL. Postoperatively his pain is pretty well controlled. He has been up to the chair in the bathroom without issue. He denies syncope, near syncope, fever, chills, sweats, chest pain, shortness of breath, nausea, vomiting, and sweats. No history of venous thromboembolism. Regarding his chronic medical conditions, he believes they are well controlled on home medications. It should be noted that he elected to stop taking anticoagulation for paroxysmal atrial fibrillation as he really needed the diclofenac for his pain and he was told that he could not be on both of them. I received a phone call from the patient's nurse at about 20:00. She overheard him speaking to his and telling her that the 1st and 2nd fingers on his right hand were numb and tingling and they had been that way since he woke up from anesthesia. He has decreased subjective sensation but is otherwise neurovascularly intact. He has not had issues with carpal tunnel syndrome. He denies vertigo, visual changes, focal weakness, facial droop, difficulty spea
[2023-12-16] MEDS: SENNA/DOCUSATE SODIUM TABLET 2 TAB PO (16:33)
[2023-12-16] MEDS: VANCOMYCIN 1,000 MG/NS 250 ML 1,000 MG/250 ML BAG 250 MG IVPB (17:32)
[2023-12-16] MEDS: FAMOTIDINE 20 MG TABLET PO (22:16)
[2023-12-17] VITALS (7 sets, daily range): BP systolic 111–159; BP diastolic 47–59; PULSE 45–74; RESP 16–20; TEMP 36.4–36.6; O2SAT 95–98
[2023-12-17] MEDS: oxyCODONE HCL (*CRX) 5 MG TAB IR PO ×3 (02:33→10:35)
[2023-12-17] MEDS: ACETAMINOPHEN 325 MG TABLET 650 MG PO ×3 (02:33→10:35)
[2023-12-17] MEDS: ceFAZolin 2 GM/D5W 50 ML 2 GM/50 ML BAG IVPB (06:40)
[2023-12-17 06:41] LABS: Basophils Absolute Auto 0.1 K/mm3 (0.0-0.1); Basophils Percent Auto 0.6 % (0.2-1.2); Eosinophils Absolute Auto 0.1 K/mm3 (0-0.3); Eosinophils Percent Auto 1.1 % (0-4.4); Hematocrit 31.5 % (42.0-52.0); Immature Granulocyte Absolute 0.05 K/mm3 (0.00-0.031); Immature Granulocyte Percent A 0.5 % (0-0.5); Lymphocytes Absolute Auto 1.41 K/mm3 (0.9-3.2); Lymphocytes Percent Auto 13.2 % (18.3-44.2); Mean Corpuscular HGB Conc 31.7 g/dl (32-36); Mean Corpuscular Hemoglobin 31.3 pg (26-34); Mean Corpuscular Volume 98.7 fl (80-100); Mean Platelet Volume 9.2 fl (7.4-10.4); Monocytes Absolute Auto 1.1 K/mm3 (0.1-0.6); Monocytes Percent Auto 10.5 % (2.6-8.5); Neutrophils Absolute Auto 7.9 K/mm3 (1.3-6.7); Neutrophils Percent Auto 74.1 % (45.5-73.1); Platelet Count Result 198 k/mm3 (150-375); Red Blood Count 3.19 M/mm3 (4.6-6.20); Red Cell Distribution Width 13.6 % (11.5-14.5); White Blood Count 10.7 K/mm3 (4.5-10.0)
[2023-12-17 06:59] LABS: Anion Gap 6 mmol/L (4-12); Blood Urea Nitrogen 37 mg/dL (9-20); Calcium 8.3 mg/dL (8.4-10.2); Carbon Dioxide 25 mmol/L (22-30); Chloride 105 mmol/L (98-107); Estimated CRCL calculation 61 ml/min; Estimated Glomerular Filt Rate 54; Glucose 115 mg/dL (65-110); Magnesium 2.3 mg/dL (1.6-2.3); Potassium 4.1 mmol/L (3.4-5.0); Sodium 136 mmol/L (137-145)
--- NOTE | 2023-12-17 07:41 | PM.PNORT ---
Subjective Subjective Date/Time Seen: 12/17/23 07:41 Interval history: Postop day 1 patient is alert. He has been afebrile vital signs are stable. Morning labs are noted. His creatinine did increase to 1.3 this morning. I am going to decrease his Celebrex to 100 mg a day. His preop he had normal creatinine. Patient states that plan he will go from anesthesia yesterday he noticed some numbness and tingling in his right thumb index and to a lesser degree the long finger. This has been slowly resolving overnight. Patient has no history of carpal tunnel syndrome or symptoms of carpal tunnel in the past. 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 The hospitalist was called at 10:00 a.m. last night MRI of the brain was ordered. Patient was seen this morning. He still has a sense of some numbness in his thumb index and long finger. He states that it is much better. He has normal intact sensation to light touch. He has a negative Tinel's over the median nerve. He has full range of motion of his fingers and wrist. There is no swelling noted. 2+ radial pulse. Strong likelihood is this was positional from surgery since he woke up from surgery this way he states. I did see the patient yesterday afternoon postoperatively and he was walking in his room he did not mention the numbness. From the hospitalist notes the patient was telling his about it but did not directly tell the nurses. The nurses did over here talking about it and that and this information was passed on the hospitalists. I did talk with Dr. Morrell this morning, the symptoms are resolving any does have sensation and normal motor function so we do not feel that the MRI of the brain is needed at this point. If this is positional it should continue to resolve. Patient will be following up with us in the office and we will monitor this. Otherwise patient has been doing very well. Pain is very well controlled. Dressing is dry and intact. He is neurovascularly intact to lower extremities. He was up walking yesterday with physical therapy and is comfortable and eager to go home. He will work with Physical therapy this morning and if he continues do well he will be discharged home late this morning. Objective Data Vital Signs Vital Signs: Vital Signs - 24 hr 12/16/23 11:56 12/16/23 12:10 12/16/23 12:25 Temperature 100.1 F H 98.7 F Pulse Rate 75 66 67 Respiratory Rate 15 12 18 Blood Pressure 146/63 H 137/51 L 153/61 H Pulse Oximetry 100 100 97 Oxygen Delivery Simple Face Mask Simple Face Mask Room Air Oxygen Flow Rate 8 8 12/16/23 12:40 12/16/23 12:55 12/16/23 13:07 Temperature 97.5 F L Pulse Rate 76 76 62 Respiratory Rate 12 18 16 Blood Pressure 152/60 H 161/66 H 155/55 H Pulse Oximetry 95 96 97 Oxygen Delivery Room Air Room Air Oxygen Flow Rate 12/16/23 13:22 12/16/23 14:42 12/16/23 20:02 Temperature 97.5 F L 99.0 F Pulse Rate 66 54 L Respiratory Rate 17 20 Blood Pressure 157/58 H 130/51 L Pulse Oximetry 98 98 Oxygen Delivery Room Air Oxygen Flow Rate 12/16/23 21:12 12/16/23 20:00 12/17/23 00:16 Temperature 97.6 F Pulse Rate 77 45 L Respiratory Rate 20 Blood Pressure 111/51 L Pulse Oximetry 96 98 Oxygen Delivery Autopap Room Air Oxygen Flow Rate 12/17/23 02:52 12/17/23 04:27 12/16/23 20:00 Temperature 97.8 F Pulse Rate 74 46 L 58 L Respiratory Rate 16 Blood Pressure 118/47 L Pulse Oximetry 95 98 Oxygen Delivery Autopap Oxygen Flow Rate 12/17/23 00:00 12/17/23 04:00 Temperature Pulse Rate 52 L 47 L Respiratory Rate Blood Pressure Pulse Oximetry Oxygen Delivery Oxygen Flow Rate Intake/Output Intake/Output: Intake & Output 12/14/23 12/15/23 12/16/23 12/17/23 23:59 23:59 23:59 23:59 Intake Total 2380 800 Output Total 500 Balance 1880 800 Meds/Results Medications: Active Medications Generic Name Dose Route Start Last Admin
[2023-12-17] MEDS: VANCOMYCIN 1,000 MG/NS 250 ML 1,000 MG/250 ML BAG 250 MG IVPB (07:44)
--- NOTE | 2023-12-17 07:48 | PM.DS ---
DS: Admitting Diagnosis Discharge Date 12/16 Admitting Diagnosis Right knee DJD DS: Discharge Diagnosis Discharge Diagnosis (1) Osteoarthritis of both knees: Code(s): M17.0 - Bilateral primary osteoarthritis of knee Status: Acute DS: Summary Hospital Course Hospital Course: 73-year-old male who underwent right total knee arthroplasty and cortisone injection in the left knee on 12/15. Underwent the procedure without complications. Patient did state that when he woke up from anesthesia he was having a sense of tingling in his right thumb index and long finger. He has had no history of carpal tunnel syndrome in the past. The morning of postop day 1 patient states that the numbness was resolving. The numbness is hand was discovered late on postop day 1. Patient was apparently talking with his about it it was overheard. I did see the patient the afternoon of surgery he did not mention sense of tingling or numbness in the hand. On the morning of postop day 1 patient was still having a slight bit of tingling. He had sensation to light touch to all of his fingers. He states that the tingling is slowly resolving in the long finger and in the index finger. He had a negative Tinel's over the median nerve. His neck at full range of motion without discomfort. He was having no tingling or numbness in the forearm or upper arm. There was no tingling in the 4th and 5th finger. The fact that this is resolving this is going to be monitored at this point. Otherwise patient was up the day of surgery walking with therapy and is comfortable. Pain is well controlled with scheduled Tylenol every 4 hours as well as oxycodone 5 mg. Patient's creatinine increased to 1.3 on the morning of postop day 1. We decreased his Celebrex to 100 mg a day rather than 200. He had normal creatinine preoperatively. He is on Eliquis for DVT prophylaxis. He is also going home with a 1 week course of Omnicef. He will go home with Senokot and MiraLax. Patient was advised to keep leg elevated home to prevent swelling. He is do his exercises every hour while awake. He has outpatient therapy starting next Wednesday. He was advised any questions or concerns he is to call the office. Particularly if has any increasing of the numbness in his right hand. Time Spent with Patient Time attestation: Total time spent providing and/or coordinating discharge services: DS: Data Data Completed and Pending Labs on day of discharge: Labs from last 24 hours 12/17/23 06:13 WBC 10.7 H RBC 3.19 L Hgb 10.0 L Hct 31.5 L MCV 98.7 MCH 31.3 MCHC 31.7 L RDW 13.6 Plt Count 198 MPV 9.2 Immature Gran % (Auto) 0.5 Neut % (Auto) 74.1 H Lymph % (Auto) 13.2 L [place] % (Auto) 10.5 H Eos % (Auto) 1.1 Baso % (Auto) 0.6 Lymph # (Auto) 1.41 [place] # (Auto) 1.1 H Eos # (Auto) 0.1 Baso # (Auto) 0.1 Abs Immat Gran (auto) 0.05 H Absolute Neuts (auto) 7.9 H Absolute Nucleated RBC 0.000 Nucleated RBC % 0.0 Sodium 136 L Potassium 4.1 Chloride 105 Carbon Dioxide 25 Anion Gap 6 BUN 37 H Creatinine 1.30 Estim Creat Clear Calc 61 Estimated GFR 54 L Glucose 115 H Calcium 8.3 L Magnesium 2.3 Discharge Plan Discharge Patient Disposition: Home, Self-Care Discharge Instructions: JAGDISH SOSA M.D [facility] [address] [place] [address] [address] [place] [address] POST-OPERATIVE DISCHARGE INSTRUCTIONS TOTAL KNEE ARTHROPLASTY 1. When resting, do not rest in the chair.When resting, lie on your back, with back flat on the couch or bed, with leg elevated above heart to minimize swelling. You may put a pillow under your head. . Significant swelling could indicate a blood clot and if this occurs call the office (or go to the ER) to have a venous ultrasound. Therefore, do not rest in a chair. 2. At least five times a day spend several minutes stretching your knee into flexion while sitting in the chair and
[2023-12-17] MEDS: SENNA/DOCUSATE SODIUM TABLET 2 TAB PO (08:37)
[2023-12-17] MEDS: FAMOTIDINE 20 MG TABLET PO (08:38)
[2023-12-17] MEDS: ESCITALOPRAM OXALATE 10 MG TABLET PO (08:38)
[2023-12-17] MEDS: ASPIRIN 81 MG ENTERIC TABLET PO (08:38)
[2023-12-17] MEDS: APIXABAN 2.5 MG TABLET PO (08:38)
[2023-12-17] MEDS: CELECOXIB 100 MG CAPSULE PO (08:38)
[2023-12-17] MEDS: CEFDINIR 300 MG CAPSULE PO (08:38)
[2023-12-17] MEDS: polyethylene glycoL 3350 17 GM POWD.PACK PO (08:39)
[2023-12-17] MEDS: lisinopriL 20 MG TABLET 40 MG PO (08:42)
--- NOTE | 2023-12-17 09:14 | PCOTNOTE ---
The patient treatment was not able to be completed patient is working with PT. Will plan to continue treatment per plan of care.
--- NOTE | 2023-12-17 10:58 | P.PNAN_ITS ---
Anes - Prog Note Post-Op Date/Time: 12/17/23 10:58 Cardiovascular status: normal Respiratory status: normal Airway patency: baseline Mental status: baseline Post-Op hydration status: normal Vital Signs: Last Vital Signs Temp 36.6 C 12/17/23 04:27 Pulse 53 L 12/17/23 08:48 Resp 16 12/17/23 04:27 BP 159/59 H 12/17/23 08:48 Pulse Ox 98 12/17/23 04:27 O2 Del Method Room Air 12/17/23 08:35 O2 Flow Rate 8 12/16/23 12:10 Pain Score (VAS): 05/15 I/O: Intake & Output 12/16/23 12/17/23 12/17/23 23:59 07:59 15:59 Intake Total 2230 800 240 Output Total 500 Balance 1730 800 240 Laboratory Tests 12/17/23 06:13 12/17/23 06:13 12/17/23 06:13 WBC 10.7 H RBC 3.19 L Hgb 10.0 L Hct 31.5 L MCV 98.7 MCH 31.3 MCHC 31.7 L RDW 13.6 Plt Count 198 MPV 9.2 Immature Gran % (Auto) 0.5 Neut % (Auto) 74.1 H Lymph % (Auto) 13.2 L [place] % (Auto) 10.5 H Eos % (Auto) 1.1 Baso % (Auto) 0.6 Lymph # (Auto) 1.41 [place] # (Auto) 1.1 H Eos # (Auto) 0.1 Baso # (Auto) 0.1 Abs Immat Gran (auto) 0.05 H Absolute Neuts (auto) 7.9 H Absolute Nucleated RBC 0.000 Nucleated RBC % 0.0 Sodium 136 L Potassium 4.1 Chloride 105 Carbon Dioxide 25 Anion Gap 6 BUN 37 H Creatinine 1.30 Estim Creat Clear Calc 61 Estimated GFR 54 L Glucose 115 H Calcium 8.3 L Magnesium 2.3 Post-procedural complaints: none Patient Feedback: Patient satisfied with anesthetic care.
--- NOTE | 2023-12-17 14:59 | PM.IMPN ---
Progress Note: A&P Assessment and Plan (1) Osteoarthritis of both knees: Code(s): M17.0 - Bilateral primary osteoarthritis of knee Status: Acute Assessment and Plan: Postoperative day 1 status post right total knee arthroplasty and cortisone injection of the left knee. Wound care, pain control, and DVT prophylaxis deferred to Dr. Castaneda. PT/OT. (2) Numbness of fingers: Code(s): R20.0 - Anesthesia of skin Status: Acute Assessment and Plan: Patient complained of right 1st, 2nd and 3rd fingers felt numb and tingly and have felt that way since he awoke from surgery. He had subjective decrease in sensation the fingers but is otherwise neurologically intact with no other deficits. May be related to position however he denies ever having symptoms of carpal tunnel. The patient has a history of paroxysmal atrial fibrillation but elected to stop taking anticoagulation as he needed the diclofenac for his knee pain and was told he should not take both of them. Stat brain CT showing no acute findings Monitor on telemetry. Neurologic checks q.4 hours. Brain MRI ordered but canceled by primary team since felt his symptoms are resolving and more likely related to positional change. (3) Hypertension: Qualifiers: Hypertension type: primary hypertension Qualified Code(s): I10 - Essential (primary) hypertension Code(s): I10 - Essential (primary) hypertension Status: Acute Assessment and Plan: Blood pressures have been running a bit high postoperatively, likely due to pain. BP better at times Continue lisinopril (4) Obstructive sleep apnea on CPAP: Code(s): G47.33 - Obstructive sleep apnea (adult) (pediatric) Status: Acute Assessment and Plan: CPAP will be provided for the patient to use while hospitalized. (5) Paroxysmal atrial fibrillation: Code(s): I48.0 - Paroxysmal atrial fibrillation Status: Acute Assessment and Plan: Currently in a sinus rhythm; he is not on rate-controlling medications or anticoagulation as above. 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 Patient slept okay. Right thumb, pointer and middle finger less numb today. Knee pain tolerable. Patient up walking in the halls. Exam Narrative: Tm 100.1 97.8 159/59 53 16 98% ra Gen - NARD Chest - CTA bilaterally, nml RR CV - RRR S1/S2. Tele showing no significant dysrhythmias. Abd - Soft, NT/ND, Positive BS Ext - No pedal edema. Rt knee dressing clean, dry and intact. Neuro - Alert and oriented. Nonfocal exam. Psych - Nml mood and affect Skin - Warm and dry Objective Data Vital Signs Vital Signs: Vital Signs - 24 hr 12/16/23 20:02 12/16/23 21:12 12/16/23 20:00 Temperature 99.0 F Pulse Rate 54 L 77 Respiratory Rate 20 Blood Pressure 130/51 L Pulse Oximetry 98 96 Oxygen Delivery Autopap Room Air 12/17/23 00:16 12/17/23 02:52 12/17/23 04:27 Temperature 97.6 F 97.8 F Pulse Rate 45 L 74 46 L Respiratory Rate 20 16 Blood Pressure 111/51 L 118/47 L Pulse Oximetry 98 95 98 Oxygen Delivery Autopap 12/16/23 20:00 12/17/23 00:00 12/17/23 04:00 Temperature Pulse Rate 58 L 52 L 47 L Respiratory Rate Blood Pressure Pulse Oximetry Oxygen Delivery 12/17/23 08:48 12/17/23 08:35 12/17/23 08:00 Temperature Pulse Rate 53 L 65 Respiratory Rate Blood Pressure 159/59 H Pulse Oximetry Oxygen Delivery Room Air Intake/Output Intake/Output: Intake & Output 12/14/23 12/15/23 12/16/23 12/17/23 23:59 23:59 23:59 23:59 Intake Total 2380 1040 Output Total 500 Balance 1880 1040 Meds/Results Radiology Results: ITS Impressions Knee
== END 2023-12-17 10:50 | disposition home or self-care (01) ==
LOC: ANHSURGERY 06:02 → ANH3MEDSUR 13:35
PROVIDERS: Physician Assistant; Physician Assistant Surgical; PCP Family Medicine; Visit Provider Orthopaedic Surgery
PROC: (CPT 27447; principal; 2023-12-16 07:30)
DX: M17.0 Bilateral primary osteoarthritis of knee (principal); R20.0 Anesthesia of skin; I10 Essential (primary) hypertension; I48.0 Paroxysmal atrial fibrillation; G47.33 Obstructive sleep apnea (adult) (pediatric); Z79.82 Long term (current) use of aspirin; Z87.891 Personal history of nicotine dependence; E66.9 Obesity, unspecified; Z68.36 Body mass index [BMI] 36.0-36.9, adult
CPT/HCPCS: 27447; 20610; 36415; 70450; 73560; 80048; 83735; 85025; 86850; 86900; 86901; 97110; 97116; 97161; 97165; 97530; 97535; A9270; C1713; C1776; J0171; J0461; J0690; J1010; J1100; J1171; J1596; J1885; J2003; J2250; J2270; J2405; J2704; J2795; J3010; J3370; J7030; J7120

== ENCOUNTER 2024-08-10 02:55 | Day surgery (SDC) | payer MEDICARE, OTHER, SELFPAY ==
[2024-08-01 13:07] VITALS: BMI 33.5
--- OUTSIDE RECORDS SUMMARY | 2024-08-10 02:58 | XMS_ITS | Continuity of Care Document ---
Author Organization [facility] Address [address] [place] [address] Phone Care Team Providers Care Conversion Developer Name Role Phone Sonia Churchill MD Unavailable Unavailable Procedures Procedure Date TISSUE EXAM BY PATHOLOGIST COLONOSCOPY AND BIOPSY Advance Directives Directive Yes / No Effective Date File Name No Information Encounters Encounter Description Practice Location Reason(s) For Visit Diagnoses Date Provider Providers Copied on Encounter [facility], [address], [place], [place], [id number], tel:[phone] [facility] No Information Zhao Scott. [address] [place] [address], [id number], . tel:[phone] [facility], [address], [place], [place], [id number], [place] tel:[phone] [facility] No Information Joe Freed. [address] [place], [address], [place]. tel:[phone] Referring Provider: Emmanuel Sierra, [address] [place] [address], [address]. tel:[phone] [facility], [address], [place], [place], [id number], tel:[phone] [facility] No Information Zhao Scott. [address] [facility], [address], [id number], [place]. tel:[phone] Referring Provider: Emmanuel Sierra, [address] [place], [address]. tel:[phone] Family History Family Member Type Diagnosis Age At Onset No Information Payers Payer name Insurance type Covered constitution party ID Essence mohamud(s) MEDICARE MB [id number] [facility] [id number] Social History Type Description Quantity Date Captured Comments Sex Male Smoking Status No Information Sexual Orientation Straight or heterosexual Gender Identity Male Chief Complaint And Reason For Visit No Information Reason For Referral Reason For Referral No Information History Of Present Illness Encounter Date Complaint History Of Prese nt Illness No Information Functional Status Date Functional Assessmen t No Information Instructions Date Instruction Additional Infor mation No Information Assessments Type Assessment Date No Information Patient Care Teams Name Effective Dates (start - stop) Status Members No Information
--- OUTSIDE RECORDS SUMMARY | 2024-08-10 02:58 | XMS_ITS | Data Portability ---
Author Organization [place] - [facility] [employer], Main Office Address [address] [place] [address] Care Team Providers Care Inspector Tubes Name Role Phone BEATRIS MENJIVAR Primary Care Provider [phone] BEATRIS MENJIVAR Referring Provider [phone] Assessment Encounter Date Assessment Date Assessment LastModified by Organization Details LastModified Time 06/26/2022 06/26/2022 HPI: Patient returns. He is here for cortisone injection both his knees. He gets almost 3 months of good relief from the injections. He has severe medial compartment osteoarthritis in both knees. He does not wish to talk about surgery at this point. He does take diclofenac 75 mg. He typically takes it once a day only. Some days he does not take any. He wish to have additional injections today. Physical exam: 71-year-old male alert pleasant. Has mild effusion in the right knee moderate effusion left. Range motion is from 12-130 degrees bilaterally. Xrly-du-bgllfwyi tenderness over the medial joint lines to palpation. Lateral joint line tenderness. No swelling in either lower extremity. ChloraPrep was used on the skin 20 mg Kenalog and 3 cc 0.5% ropivacaine was injected in both knees. Risk infection discussed. Impression: 71-year-old male with severe medial compartment osteoarthritis in both knees. Continue good relief from injections. We will refill his diclofenac today. We also removed script for blood work. We will see him back in 3 months repeat injection. Not available 06/26/2022 09:26:28 09/16/2022 09/16/2022 HPI: Patient returns. He is here for cortisone injection in both of his knees. He has severe medial compartment osteoarthritis in both knees. Last shots were 3 months ago. Shots continue to work well for him. He does not wish to discuss surgical options with his knees. He remains on diclofenac once a day. I talked with him again about the diclofenac, he has a history of stroke and he has spoke with his primary care doctor in the past about this and the primary has been well aware and feels that it is safe for him to take it once a day. Again he has been on this for years. He recently had blood work which showed no abnormalities. We will refill that today for him. Physical exam: 71-year-old male alert pleasant. He has mild effusion both knees. He has varus alignment to both knees. Range of motion right knee is from 15-120 degrees and on the left is 12-120 degrees. No increased swelling in either lower extremity. Brif-bw-icmpomxw tenderness over both medial joint lines palpation. After ChloraPrep was used on skin 20 mg Kenalog and 3 cc of 0.5% ropivacaine was injected in both knees. Risk infection discussed. Impression: 71-year-old male with severe medial compartment osteoarthritis both knees. Shots continue to work well for him. We will see him back in 3 months repeat injection. Not available 09/16/2022 10:09:32 12/18/2022 12/18/2022 HPI: Patient returns. He is here for cortisone injection both of his knees. Last shots were 3 months ago. He feels after the shots he wants to have his knee replaced in in early March early April of next year. He would like to have the right 1 done as this 1 has been the most symptomatic for him. Physical exam: 72-year-old male alert pleasant. He has mild effusions in both knees. Range of motion is from 15 to 125 bilaterally. Mild tenderness over both medial joint lines. He has no increased swelling in either lower extremity. After ChloraPrep was used on skin 20 mg Kenalog and 3 cc of 0.5% ropivacaine was injected into both knees. risk of infection discussed.. Impression: 72-year-old male Who has severe medial compartment osteoarthritis in both knees. He is ready to have the right 1 done after the 3 months have gone by from these shots. He needs to have a risk assessment done due to his history of stroke in 2013 and he has a history of a thrombosed vertebral artery. He is having some difficulty getting into neurology. We will send referral so that they can do a risk assessment prior to surgery we will see him back in early February for surgical consultation. Not available 12/18/2022 09:37:42 03/24/2023 03/24/2023 Impression: Patient has severe osteoarthritis in both knees. He is planning on knee replacement perhaps in late June. For today he would like cortisone shots. Risk of side effects including risk of infection were discussed. After ChloraPrep prep, 20 mg Kenalog and 4 cc of 0.5% ropivacaine were injected into each knee without difficulty. I will see him back in early June to assess his progress. 20 minutes were spent in total care this patient more than half the time spent in clhr-st-sozc care. [email or web address] Not available 04/04/2023 19:00:34 Plan of Treatment Reminders Order Date Submit Date Provider Last Modified By Organization Details Last Modified Time Details Appointments None recorded. Lab None recorded. Referral None recorded. Procedures injection/a spiration joint/bursa (PROC) - in office procedure, administere d by provider 2023 024 [email or web address] In-Office Order, Internal Use Only DO Not Attach Compendium DO Not Attach Compendium, Do Not Delete/merge, [id number] 4 18:58:39 injection/a spiration joint/bursa (PROC) - in office procedure, administere d by provider 2022 023 [email or web address] In-Office Order, Internal Use Only DO Not Attach Compendium DO Not Attach Compendium, Do Not Delete/merge, [id number] 3 09:06:32 injection/a spiration joint/bursa (PROC) - in office procedure, administere d by provider 2022 023 [email or web address] In-Office Order, Internal Use Only DO Not Attach Compendium DO Not Attach Compendium, Do Not Delete/merge, [id number] 3 09:19:11 injection/a spiration joint/bursa (PROC) - in office procedure, administere d by provider 2022 023 [email or web address] In-Office Order, Internal Use Only DO Not Attach Compendium DO Not Attach Compendium, Do Not Delete/merge, [id number] 3 09:12:39 Surgeries None recorded. Imaging XR, knee 2023 024 [email or web address] [facility] [place] [facility], [facility] [facility] [address], [place], [address], 4 11:02:32 Medication Orders Kenalog 10 mg/mL suspension for injection [address] [id number], [address] [place], [place], [id number], 4 18:58:39 ropivacaine (PF) 5 mg/mL (0.5 %) injection solution [address] [facility] [id number], [address] [place], [place], [id number], 4 18:58:39 Kenalog 10 mg/mL suspension for injection 2022 023 [email or web address] [id number], [address] [place], [address], 3 14:11:44 ropivacaine (PF) 5 mg/mL (0.5 %) injection solution 2022 023 [email or web address] [id number], [address] [place], [address], 3 14:11:44 Kenalog 10 mg/mL suspension for injection 2022 023 [email or web address] [id number], [address] [place], [address], 3 11:24:56 ropivacaine (PF) 5 mg/mL (0.5 %) injection solution 2022 023 [email or web address] Not available 3 11:24:56 diclofenac sodium 75 mg tablet,maxim yed release [id number], [address] [place], [address], 3 11:24:56 Kenalog 10 mg/mL suspension for injection 2022 023 [id number] [place], [address], 3 21:15:56 ropivacaine (PF) 5 mg/mL (0.5 %) injection solution [id number], [address] [place], [address], 3 21:15:56 Patient TargetsNo targets recorded. Patient InstructionsNo instructions recorded. Reason for Referral None Reported. Results Created Date Observation Date Name Description Value Unit Range Abnormal Flag Note LastModifiedBy Organization Detail LastModifiedTime 03/24/19 24 XR, knee No observ ation record ed. [email or web address] [facility] [place] [address] [facility] [address], [place], [address], 04/04/2023 19:00:06 Result Notes None recorded. 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 Procedures Surgical History Date Name Laterality Status Provider Name and Address Organization Details Recorded Time Shoulder completed Not Available [facility] 13:28:31 Imaging Results None recorded. Procedure Notes None recorded. Medical Equipment None Reported. Allergies No known drug allergies Medications Name Sig Start Date Stop Date Status Note LastModified by Organization Details LastModified Time celecoxib 200 mg capsule active Not Available Not Available Not Available azithromyci n 250 mg tablet TAKE 2 TABLETS BY MOUTH TODAY, THEN TAKE 1 TABLET DAILY FOR 4 DAYS DIRECTED 03/24 completed Not Available Not Available Not Available aspirin 325 mg tablet Take 1 tablet every day by oral route as directed. 2018 completed Not Available Not Available Not Available lisinopril 20 mg tablet TAKE 1 TABLET BY MOUTH EVERY DAY 02/25 completed Not Available Not Available Not Available bupivacaine HCl 0.5 % (5 mg/mL) injection solution In office injection administe red by the provider 12/26 completed Not Available Not Available Not Available amlodipine 2.5 mg tablet TAKE 1 TABLET BY MOUTH EVERY DAY 12/26 completed Not Available Not Available Not Available amlodipine 5 mg tablet TAKE 1 TABLET BY MOUTH EVERY DAY 12/26 completed Not Available Not Available Not Available ciclopirox 8 % topical solution APPLY TO NAILS ONCE DAILY AND ONLY NAILS 12/04 completed Not Available Not Available Not Available amoxicillin 875 mg tablet TAKE 1 TABLET BY MOUTH EVERY 12 HOURS UNTIL GONE 12/18 completed Not Available Not Available Not Available Kenalog 10 mg/mL suspension for injection in office 2023 active Not Available Not Available Not Avai lable diclofenac sodium 75 mg tablet,maxim yed release TAKE 1 TABLET TWICE A DAY BY ORAL ROUTE FOR 90 DAYS. active Not Available Not Available No t Available methylpredn isolone 4 mg tablets in a dose pack 12/04 completed Not Available Not Available Not Available lisinopril 40 mg tablet TAKE 1 TABLET BY MOUTH EVERY DAY active Not Available Not Available No t Available ciclopirox 0.77 % topical gel APPLY TOPICALLY TWICE A DAY FOR 4 WEEKS 03/24 completed Not Available Not Available Not Available escitalopra m 10 mg tablet TAKE 1 TABLET BY MOUTH EVERY DAY active Not Available Not Available No t Available rosuvastati n 20 mg tablet TAKE 1 TABLET BY MOUTH EVERYDAY AT BEDTIME 10/21 /2022 completed Not Available Not Available Not Available mometasone 0.1 % topical solution 1 APPLIC TOPICALLY DAILY NEEDED FOR ITCHING active Not Available Not Available No t Available lidocaine (PF) 10 mg/mL (1 %) injection solution In office injection administe red by the provider 12/26 completed [facility]: 0409- 4276- 17 Not Available Not Available Not Available ropivacaine (PF) 5 mg/mL (0.5 %) injection solution in office 2023 active Not Available Not Available Not Avai lable Vitals Date Recorded Body height Body mass index (BMI) Body weight Provider Name and Address Organization Details Last Updated DateTime 03/24/2023 177.8 cm 35.6 kg/m2 453781.91 g Ellen Ng [employer] [facility] Phys[facility] [employer] [facility] 03/24/2023 09:15:20 Date Recorded Body height Provider Name an d Address Organization Details Last Updated DateTime 03/27/2022 177.8 cm Not Available [facility] 13:28:37 Date Recorded Body height Provider Name an d Address Organization Details Last Updated DateTime 06/26/2022 177.8 cm Ellen Ng [facility] [facility] [employer] [facility] 06/26/2022 09:10:42 Date Recorded Body height Provider Name an d Address Organization Details Last Updated DateTime 09/16/2022 177.8 cm Ellen Ng [employer] [facility] [employer] 09/16/2022 09:17:43 Date Recorded Body height Provider Name an d Address Organization Details Last Updated DateTime 12/18/2022 177.8 cm Ellen Ng [facility] [employer] [facility] [employer] [facility] 12/18/2022 09:05:16 Social History Question Answer Notes LastModified by Axxana Details LastModified Time Tobacco Smoking Status Former Smoker Not Available [facility] 05/06/2022 13:28:31 When Did You Quit Smoking? 18+yearssinc elastcigaret te [id number] Information not available 05/06/2022 Sex: Unknown Functional Status Question Answer Note LastModified by Axxana Details LastModified Time What is your level of alcohol consumption? Occasional [id number] Information not available 05/06/2022 Mental Status None recorded. Family History Relationship Description Onset Age of this Age Resolved Age Notes LastModified by Organization Details LastModified Time Mother Family history of stroke [id number] Not available 05/06/2022 13:28:32 Mother Family history of malignant neoplasm [id number] Not available 05/06/2022 13:28:32 Medical History Condition Response ARTHRITIS Y USE OF BLOOD THINNERS Y HYPERTENSION Y STROKE/TIA Y Past Encounters Encounter ID Performer Location Encounter Start Date Encounter Closed Date Diagnosis/Indication Diagnosis SNOMED-CT Code Diagnosis ICD10 Code Diagnosis Note [id number] Rick Castaneda MD [facility] [place] [address] [place] [address] 12/04/2020 00:00:00 12/04/2020 17:03:18 [id number] Rick Castaneda MD [facility] [place] [address] [place] [address] 06/27/2021 00:00:00 06/27/2021 14:02:15 [id number] Rick Castaneda MD [facility] [place] [address] [place] [address] 09/24/2021 00:00:00 09/24/2021 14:56:15 [id number] Rick Castaneda MD [facility] [place] [address] [place] [address] 12/26/2021 00:00:00 12/26/2021 14:44:29 [id number] Rick Castaneda MD [facility] [place] [address] [place] [address] 02/25/2022 00:00:00 03/08/2022 18:33:32 [id number] Rick Castaneda MD [facility] [place] [address] [place] [address] 03/27/2022 00:00:00 03/27/2022 09:51:02 [id number] [facility] [place] [address] [place] [address] 06/26/2022 09:08:39 06/26/2022 09:28:11 Bilateral osteoarthritis of knees 2667535341 52858 M17.0 [id number] Rick Castaneda MD [facility] [place] [address] [facility] [address] [place] [address] 09/16/2022 09:11:10 09/16/2022 12:00:03 Osteoarthritis 517636314 M17.0 [id number] Rick Castaneda MD [facility] [place] [address] [place] [address] 12/18/2022 09:03:20 12/18/2022 10:58:47 Bilateral osteoarthritis of knees 7857387522 31860 M17.0 [id number] Rick Castaneda MD [facility] [place] [address] [facility] [address] [place] [address] 03/24/2023 08:42:53 04/05/2023 11:02:32 Bilateral osteoarthritis of knees 7454820915 38933 M17.0 Health Concerns Section Related Observation LastModified by Organization Detai ls LastModified Time None Recorded Concern Status LastModified by Organization Details LastModified Time None Recorded Advance Directives Directive None Recorded Payers Encounter Date Sequence Insurance Name Policy Number Policy Potter Covered Member ID Potter Member ID Guarantor Name 06/26/2022 1 [place] Lyndon Perez Damian [id number] 5 Lyndon Perez Damian 06/26/2022 2 [employer] (MEDICARE SUPPLEMENT) Lyndon Ana Salgado [id number] Lyndon Ana Damian 09/16/2022 1 [place] Lyndon Perez Damian [id number] 5 Lyndon Perez Damian 09/16/2022 2 [employer] (MEDICARE SUPPLEMENT) Lyndon Salgado [id number] Lyndon Salgado 12/18/2022 1 [place] Lyndon Salgado [id number] 5 Lyndon Perez Damian 12/18/2022 2 [employer] (MEDICARE SUPPLEMENT) Lyndon Salgado [id number] Lyndon Salgado 03/24/2023 1 [place] Lyndon Goncalvesangelo [id number] 5 Lyndon Goncalvesangelo 03/24/2023 2 [facility] Lyndon Salgado [id number] Lyndon Salgado Notes Date Note Type Note Provider Name and Address Organization Details Recorded Time 03/24/2023 text/html Patient returns. He is taking diclofenac 1 tablet daily and occasionally 1 tablet twice a day for his bilateral knee symptoms. His pain today is 3 to 5/10 in both knees. Some days it is worth is. X-rays today show severe medial moderate lateral compartment osteoarthritis left knee advanced medial compartment osteoarthritis the right knee. Both knees show worsening of the arthritis compared with the x-rays from 12/26/2021. He complains that stairs are very problematic for him. He is going to be seen the neurologist on May 17. He has a history of stroke and a history of a thrombosed vertebral artery and requires neurology clearance before elective surgery in preparation for knee replacement. Rick Castaneda MD [address] [place] [address], [place] [address], [place], [address], [facility] [employer] 04/04/2023 19:00:38
[2024-08-10 06:22] VITALS: BP 121/69; PULSE 58; RESP 18; TEMP 36.8; O2SAT 96
[2024-08-10] MEDS: LACTATED RINGERS 1,000 ML 150 ML IV CONT (06:34)
--- NOTE | 2024-08-10 07:22 | PM.HPGS ---
History of Present Illness History of Present Illness Consent: Risks, benefits, and alternatives have been discussed and questions answered. Patient agrees to proceed with procedure. Chief complaint: Encounter for screening for malignant neoplasm of Narrative: Lyndon Salgado is a 73 year old male here for colonoscopy, last one 5 years ago with polyp Review of Systems Review of Systems: All systems reviewed & are unremarkable except as noted in HPI and below PMFSH Past Medical History Medical History (Updated 08/10/24 @ 07:25 by Fabricio Suh MD) Colon polyp Paroxysmal atrial fibrillation Osteoarthritis Cerebrovascular accident (2013) Obstructive sleep apnea on CPAP Lyme disease (08/2023) Hypertension Surgical History Surgical History History of vasectomy History of arthroplasty of right knee (12/16/23) History of repair of right rotator cuff (2005) Family History Family History Mother Cancer Cerebrovascular accident Lung cancer C. difficile colitis Father Hypertension Pacemaker Social History Social History Social History: Surrogate medical decision maker: Code status: Full code. Smoking packs per day: 1 Smoking cigarettes per day: 20.0 Years smoked: 30 Smoking pack-years: 30.00 Smoking status: Former smoker Tobacco type: cigarettes Second hand tobacco smoke exposure: No Smoking end date: 03/08/98 Additional smoking assessment comments: Smokes cigars for 20 years and quit in 2005. Alcohol intake: current Drinks per week: 14 Substance use: current Substance use type: does not use Current Housing: Decline to Answer Concerned About Future Housing: Decline to Answer Difficulty Paying Gas/Electric Bills: Decline to Answer Difficulty Paying for Meds: Decline to Answer Currently Unemployed: Decline to Answer Education: Decline to Answer Difficulty w/ Childcare or Family Care: Decline to Answer Living arrangements: with family Additional living arrangements comments: Lives in [place]. 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 Spiritual care concerns: No Meds Home Medications and Allergies Home Medications ?Medication ?Instructions ?Recorded ?Confirmed ?Type aspirin 81 mg tablet,delayed 81 mg PO DAILY 03/02/23 08/10/24 History release escitalopram oxalate 10 mg tablet 10 mg PO DAILY #90 tabs 06/17/23 08/10/24 Rx lisinopril 20 mg tablet 20 mg PO DAILY #90 tabs 03/07/24 08/10/24 Rx acetaminophen 325 mg tablet 650 mg PO Q4H PRN fever or pain 08/01/24 08/10/24 History celecoxib 200 mg capsule (Celebrex) 200 mg PO DAILY #30 caps 08/07/24 08/10/24 Rx Allergies Allergy/AdvReac Type Severity Reaction Status Date / Time Wavdnsa-DHK-LhO Reductase AdvReac Joint Pain Verified 08/10/24 06:21 Inhibitor Vital Signs Vital Signs - 24 hr 08/10/24 06:22 Temperature 98.3 F Pulse Rate 58 L Respiratory Rate 18 Blood Pressure 121/69 Pulse Oximetry 96 Oxygen Delivery Room Air Exam Const: General: comfortable and no acute distress HENMT: Face/Nose/Sinus: Normal nares present Eyes: General: appearance normal, both eyes and all related structures Neck: Neck: no JVD Resp: Auscultation: clear to auscultation bilaterally Cardio: Rate: regular rate Rhythm: regular rhythm GI: Inspection: non-distended GI Palp: Yes Soft to palpation Skin: General skin exam: normal color Neuro: General: gait normal Speech: normal speech Extrem: General: normal to inspection Psych: Mental Status: mental status grossly normal Assessment and Plan Assessment and plan (1) Colon polyp: Code(s): K63.5 - Polyp of colon Status: Acute Assessment and Plan: colonoscopy
--- NOTE | 2024-08-10 07:34 | P.PNAN_ITS ---
Anes - Initial Pre Proc Eval Procedure: Operation Date: 08/10/24 07:30 Proposed Procedures p Screening Colonoscopy - Fabricio Suh MD Date/Time: 08/10/24 07:34 Surgeon: Fabricio Suh MD Pre Op Diagnosis: Encounter for screening for malignant neoplasm of Patient Data Age: 73 Gender: M Height: 1.8 m Weight: 111.4 kg Last Vital Signs Temp 98.3 F 08/10/24 06:22 Pulse 58 L 08/10/24 06:22 Resp 18 08/10/24 06:22 BP 121/69 08/10/24 06:22 Pulse Ox 96 08/10/24 06:22 O2 Del Method Room Air 08/10/24 06:22 Allergies Allergy/AdvReac Type Severity Reaction Status Date / Time [id number]-[id number] Reductase AdvReac Joint Pain Verified 08/10/24 06:21 Inhibitor Home Medications ?Medication ?Instructions ?Recorded ?Confirmed ?Type aspirin 81 mg tablet,delayed 81 mg PO DAILY 03/02/23 08/10/24 History release escitalopram oxalate 10 mg tablet 10 mg PO DAILY #90 tabs 06/17/23 08/10/24 Rx lisinopril 20 mg tablet 20 mg PO DAILY #90 tabs 03/07/24 08/10/24 Rx acetaminophen 325 mg tablet 650 mg PO Q4H PRN fever or pain 08/01/24 08/10/24 History celecoxib 200 mg capsule (Celebrex) 200 mg PO DAILY #30 caps 08/07/24 08/10/24 Rx Patient hx anesthesia problems: none Family hx anesthesia problems: none Results Review: All pre-operative results and documents have been reviewed as part of the pre- operative evaluation. [facility] Past Medical History Medical History Colon polyp Paroxysmal atrial fibrillation Osteoarthritis Cerebrovascular accident (2013) Obstructive sleep apnea on CPAP Lyme disease (08/2023) Hypertension Surgical History Surgical History History of vasectomy History of arthroplasty of right knee (12/16/23) History of repair of right rotator cuff (2005) Family History Family History Mother Cancer Cerebrovascular accident Lung cancer C. difficile colitis Father Hypertension Pacemaker Social History Social History Social History: Surrogate medical decision maker: Code status: Full code. Smoking packs per day: 1 Smoking cigarettes per day: 20.0 Years smoked: 30 Smoking pack-years: 30.00 Smoking status: Former smoker Tobacco type: cigarettes Second hand tobacco smoke exposure: No Smoking end date: 03/08/98 Additional smoking assessment comments: Smokes cigars for 20 years and quit in 2005. Alcohol intake: current Drinks per week: 14 Substance use: current Substance use type: does not use Current Housing: Decline to Answer Concerned About Future Housing: Decline to Answer Difficulty Paying Gas/Electric Bills: Decline to Answer Difficulty Paying for Meds: Decline to Answer Currently Unemployed: Decline to Answer Education: Decline to Answer Difficulty w/ Childcare or Family Care: Decline to Answer Living arrangements: with family Additional living arrangements comments: Lives in [place]. 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 Spiritual care concerns: No Anes - Eval Final PreProcedure Day of Procedure 08/10/24 07:34 Patient weight: obese Lungs: normal air movement Airway: Mallampati scale class II Neurological: alert and oriented Last oral intake: >/= 8 hours ASA classification: III Emergent: no Anesthetic plan: proceed Anesthesia type and monitoring: general GIVS and standard monitoring Results Review: All pre-operative results and documents have been reviewed as part of the pre- operative evaluation. VIRGILIO on CPAP, hx of Pafib in the setting of Lyme disease, now NSR. HTN. Informed Consent: The patient's anesthetic plan and its attendant risks and benefits were discussed with the patient/family/POA. Questions were solicited and answers provided to the satisfaction of the patient/family/POA.
--- NOTE | 2024-08-10 07:41 | S_PTH ---
PATIENT: Lyndon Salgado LOC: [facility]#:[id number] AGE/SX: 73/M ROOM: RE08/10/[address]: Fabricio Suh MD : 1950 BED: DIS: 08/10/2024 SPEC #: [id number] RECD: 08/10/24 10:17 STATUS: ANASTACIA BENSON #: [id number] EVANGELISTA: 08/10/24 07:[address]: Fabricio Suh DEPT: [facility] Surgical RECD BY: Annemarie Ca ENTERED: 08/10/24 10:17 SP TYPE: Surgical OTHR DR: Terrell FloresMD Tissues: A - Colon Polypectomy Procedures: Hematoxylin and Eosin Stain Gross and Microscopic Level 4
[2024-08-10 07:45] VITALS: BP 87/42; PULSE 50; RESP 17; O2SAT 97
[2024-08-10 07:55] VITALS: BP 102/51; PULSE 48; RESP 17; O2SAT 99
[2024-08-10 08:05] VITALS: BP 112/57; PULSE 45; RESP 12; O2SAT 99
== END 2024-08-10 08:21 | disposition home or self-care (01) ==
PROVIDERS: PCP Family Medicine; Visit Provider Internal Medicine Gastroenterology
PROC: 0DJD8ZZ Inspection of Lower Intestinal Tract, Via Natural or Artificial Opening Endoscopic (ICD-10-PCS; CPT 45378; principal; 2024-08-10 07:30)
DX: Z12.11 Encounter for screening for malignant neoplasm of colon (principal); D12.3 Benign neoplasm of transverse colon; K64.8 Other hemorrhoids; K57.30 Diverticulosis of large intestine without perforation or abscess without bleeding; I48.0 Paroxysmal atrial fibrillation; I10 Essential (primary) hypertension; G47.33 Obstructive sleep apnea (adult) (pediatric); M19.90 Unspecified osteoarthritis, unspecified site; A69.20 Lyme disease, unspecified; E66.9 Obesity, unspecified; Z68.34 Body mass index [BMI] 34.0-34.9, adult; Z79.82 Long term (current) use of aspirin; Z79.1 Long term (current) use of non-steroidal anti-inflammatories (NSAID); Z99.89 Dependence on other enabling machines and devices; Z98.890 Other specified postprocedural states; Z87.891 Personal history of nicotine dependence; Z86.79 Personal history of other diseases of the circulatory system; Z80.1 Family history of malignant neoplasm of trachea, bronchus and lung; Z82.49 Family history of ischemic heart disease and other diseases of the circulatory system
CPT/HCPCS: 45380; 88305; J2003; J2704; J7120